=== PATIENT | female | born 1935 | race Caucasian/White ===

== ENCOUNTER → 2017-12-27 11:21 | Outpatient (CLI) | payer MEDICARE, SELFPAY ==
[2017-12-31 11:20] LABS: PTHIN 259.2 pg/mL (18.4-80.1)
[2017-12-31 11:24] LABS: ALB/GLOB Ratio 1.3 RATIO (0.9-2.4); AST(SGOT) 19 U/L (15-37); Alanine Aminotransfer ALT/SGPT 24 U/L (13-56); Albumin, Serum 3.4 g/dL (3.2-5.0); Alkaline Phosphatase 60 U/L (45-117); Anion Gap 9 (5-15); BUN 16 mg/dL (7-18); BUN/Creat Ratio 15.2 RATIO (10-20); Calcium,Total 10.5 mg/dL (8.5-10.1); Chloride 107 mmol/L (98-107); Creatinine, Serum 1.05 mg/dL (0.55-1.02); EST Glomerular Filtration Rate 53 mL/min (>60); Est Glom Filt Rate - Afr Amer 64 mL/min (>60); Globulin 2.7 g/dL (2.2-4.2); Glucose 86 mg/dL (74-106); Potassium 4.7 mmol/L (3.5-5.1); Protein, Total 6.1 g/dL (6.4-8.2); Sodium Level 144 mmol/L (136-145); Thyroid Stim Hormone (TSH) 1.03 uIU/mL (0.358-3.74)
== END ==
PROVIDERS: Family Provider Family Medicine; PCP Family Medicine; Visit Provider Internal Medicine Endocrinology, Diabetes & Metabolism
DX: E04.9 Nontoxic goiter, unspecified (principal); E21.0 Primary hyperparathyroidism; E55.9 Vitamin D deficiency, unspecified
CPT/HCPCS: 36415; 80053; 82306; 83970; 84443

== ENCOUNTER 2017-12-31 20:35 | Emergency (ER) | payer MEDICARE, SELFPAY ==
[2017-12-31 20:36] VITALS: BP 155/103; PULSE 63; RESP 17; TEMP 36.8; O2SAT 97; BMI 25.0
--- NOTE | 2017-12-31 21:13 | EKG12_ITS ---
Test Reason : Blood Pressure : / mmHG Vent. Rate : 063 BPM Atrial Rate : 063 BPM P-R Int : 170 ms QRS Dur : 094 ms QT Int : 396 ms P-R-T Axes : 065 036 047 degrees QTc Int : 405 ms Normal sinus rhythm with sinus arrhythmia Normal ECG Confirmed by LACY SMITH, PANKAJ ([id number]), editor school photograph PALAK BANUELOS ([id number]) on 01/03/2018 2:48:16 PM Referred By: Gurinder Aguilar Confirmed By:PANKAJ HOUSE MD
--- NOTE | 2017-12-31 21:22 | RAD_ITS ---
STUDY: X-RAY CHEST REASON FOR EXAM: Female, 82 years old. CHEST PAIN TECHNIQUE: Frontal and lateral views of the chest. COMPARISON: None. FINDINGS: Chronic appearing increased interstitial lung markings. The lung tee are hyperexpanded. There is no demonstrated pleural abnormality. Normal heart size. Normal mediastinum and jena. Normal visualized pulmonary arteries. There is atherosclerotic calcification of the aortic arch with tortuosity. There are diffuse degenerative changes of the visualized thoracic spine. There is degenerative osteoarthritis of the bilateral shoulders. There is no demonstrated abnormality of the visualized soft tissue structures of the upper abdomen. RAD/Chest PA and Lateral IMPRESSION: There are no acute findings. Electronically Signed: Judd Mauricio MD at 21:47 EDT , Service support ,
--- NOTE | 2017-12-31 21:46 | ED.DCSUM_ITS ---
- ER Visit Summary Date of Service: 12/31/17 Chief Complaint: Stomach and chest pain History of Present Illness: The patient is a 82 F with a history of vascular dementia who is a very poor historian. is not able to provide much input. Patient was brought in by her . She reported was complaining of some epigastric or lower chest pain earlier this evening that is now resolved. The patient told her she does want to be checked out. states she was pointing to the lower portion of her breast bone which is rather prominent. He believes that this was bothering her earlier. Past history significant for TIA, diabetes, hypertension, high cholesterol. Physical Examination: Vital signs are unremarkable. Patient sitting at bedside in no acute distress. Head neck examination is unremarkable with no sign of trauma. Heart is regular rate and rhythm. Lung sounds are clear. I cannot reproduce any chest wall tenderness. Abdomen is soft and nontender. She allows deep palpation throughout the upper abdomen. Test Results: EKG is sinus at 63 with no sign of acute ischemia. Two-view chest x-ray reveals no acute findings. Emergency Department Course and Treatment: At this time the patient's symptoms are completely resolved and described as being very vague. I do not think she needs significant further workup at this time. Patient and her are both comfortable with this. Treatment Plan: [] Disposition: Discharge Impression: Epigastric abdominal pain, resolved This note was generated with [employer] dictation software. It may contain incorrect words, spelling, and punctuation that were not noted in review of the chart prior to signing ED Disposition - Plan for ED Patient: Disposition: Home or Assisted Living Chief Complaint: Other, Pain/Inj Instructions: ED Epigastric Pain [facility] Referrals: Rodney Vance MD [Primary Care Provider] - As Needed
[2017-12-31 21:52] VITALS: BP 164/85; RESP 14
== END 2017-12-31 21:56 | disposition home or self-care (01) ==
PROVIDERS: Emergency Provider Emergency Medicine; Family Provider Family Medicine; PCP Family Medicine
DX: R10.13 Epigastric pain (principal); E11.9 Type 2 diabetes mellitus without complications; I10 Essential (primary) hypertension; E78.00 Pure hypercholesterolemia, unspecified; Z79.84 Long term (current) use of oral hypoglycemic drugs; Z79.02 Long term (current) use of antithrombotics/antiplatelets; Z79.899 Other long term (current) drug therapy; Z86.73 Personal history of transient ischemic attack (TIA), and cerebral infarction without residual deficits
CPT/HCPCS: 71046; 93005; 99282

== ENCOUNTER 2018-03-09 21:49 | Observation (INO) | payer MEDICARE, MEDICAID, SELFPAY ==
[2018-03-09 21:50] VITALS: BP 175/91; PULSE 72; RESP 17; TEMP 36.7; O2SAT 95; BMI 25.9
--- NOTE | 2018-03-09 22:18 | ED.RN ---
HOME MEDICATIONS WERE DOCUMENTED WITH THE ASSISTANCE OF THE OF PT. PT'S KNEW SOME MEDICATIONS.
--- NOTE | 2018-03-09 22:25 | EKG12_ITS ---
Test Reason : CONFUSION Blood Pressure : / mmHG Vent. Rate : 080 BPM Atrial Rate : 080 BPM P-R Int : 198 ms QRS Dur : 090 ms QT Int : 362 ms P-R-T Axes : 060 -15 046 degrees QTc Int : 417 ms Normal sinus rhythm Normal ECG Confirmed by ONEYDA SMITH, DEVI ([id number]), field map editor PALAK BANUELOS ([id number]) on 03/20/2018 6:47:20 PM Referred By: KIMBERLY Confirmed By:DEVI CALL MD
--- NOTE | 2018-03-09 22:26 | CT_ITS ---
STUDY: CT BRAIN WITHOUT CONTRAST REASON FOR EXAM: Female, 82 years old. Confusion RADIATION DOSAGE (If Supplied By Facility): CTDIvol = ( 44.99 ) mGy, DLP = ( 779.24 ) mGycm TECHNIQUE: Transaxial CT imaging of the brain was performed without administration of intravenous contrast material. Individualized dose optimization techniques were used for this CT. COMPARISON: None. FINDINGS: There is ventriculomegaly which is disproportionate in prominence to the degree of cortical sulci prominence seen. This raises the possibility of normal pressure hydrocephalus especially with the given history of confusion. Nonspecific microangiopathic white matter changes also evident. There is no acute hemorrhage or acute infarction and no intra or extra-axial tumor mass. The calvarium is intact and there are no scalp swellings CT/Brain/Head without Contrast IMPRESSION: No acute findings in the brain. Possible normal pressure hydrocephalus. Electronically Signed: Vincent Shultz, at 0:53 EDT Tel , Service support ,
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
--- NOTE | 2018-03-09 22:45 | RAD_ITS ---
STUDY: X-RAY CHEST REASON FOR EXAM: Female, 82 years old. Increased confusion TECHNIQUE: 1 view COMPARISON: None. FINDINGS: The lungs are clear and expanded. There is no demonstrated pleural abnormality. Normal size heart. Normal mediastinum and jena. Normal visualized pulmonary arteries. Normal visualized aortic arch and descending thoracic aorta. There are degenerative changes of the thoracic spine. Normal visualized ribs, clavicles, and shoulders. There is no demonstrated abnormality of the visualized soft tissue structures of the upper abdomen. RAD/Chest 1 View (Portable) IMPRESSION: No acute findings in the lungs Electronically Signed: Vincent Shultz, at 0:11 EDT Tel , Service support ,
[2018-03-09 22:52] LABS: Mucous, Urine 0 SEEN /hpf (<or=2+); White Blood Cells 0 SEEN /hpf (0-5)
[2018-03-09 22:55] LABS: Color, Urine Yellow (Yellow); Glucose, Dipstick Normal (Normal); Ketone-Dipstick Negative (Negative); Leukocyte Esterase-Dipstick Negative /ul (Negative); Nitrite-Dipstick Negative (Negative); Occult Blood-Urine 25 /ul (Negative); Protein-Dipstick 15 mg/dl (Negative); Urine Bilirubin Dipstick Negative (Negative); Urine Clarity Sl. Cloudy (Clear); Urine Urobilinogen Normal (Normal)
[2018-03-09 22:59] LABS: Absolute Lymphocyte Count 1.72 X10^3/ul (0.83-4.51); Absolute Neutrophil Count 3.9 X10^3/uL (2.0-7.7); Basophil# 0.19 X10^3/uL; Eosinophil# 0.05 X10^3/uL; Eosinophils% 0.8 % (0-5); Hematocrit 36.8 % (37-47); Hemoglobin 11.6 g/dl (12.0-15.0); Lymphocyte # 1.72 X10^3/ul (4.0); Lymphocyte % 26.8 % (19-41); Mean Corp Hgb Conc 31.5 g/gl (32-36); Mean Corpuscular Hgb 30.2 pg (27.0-32.0); Mean Corpuscular Volume 95.8 fL (81-99); Mean Platelet Vol. 10.2 fl (6.2-12.0); Monocyte# 0.59 X10^3/uL; Monocyte% 9.2 % (0-10); Neutrophil # 3.87 X10^3/uL (2.7-7.7); Neutrophil % 60.2 % (47-70); Platelet Count 245 K/mm3 (150-450); RBC Distribution Width CV 13.6 % (11.6-14.6); RBC Distribution Width SD 47.5 fl (35.1-43.9); Red Blood Count 3.84 M/mm3 (4.2-5.4); White Blood Count 6.4 K/mm3 (4.4-11.0)
[2018-03-09 23:00] LABS: POSITIVE COUNT NO; POSITIVE DIFFERENTIAL NO; POSITIVE MORPHOLOGY NO
[2018-03-09 23:03] LABS: Bacteria 1+ /hpf (None Seen); Red Blood Cells-Urine 0-5 SEEN /hpf (0-5); Squamous Epithelial Cells - UA 0-5 SEEN /hpf (5-10)
[2018-03-09 23:14] LABS: AST(SGOT) 21 U/L (15-37); Alanine Aminotransfer ALT/SGPT 23 U/L (13-56); Albumin, Serum 3.8 g/dL (3.2-5.0); Alkaline Phosphatase 100 U/L (45-117); Anion Gap 8 (5-15); BUN 20 mg/dL (7-18); BUN/Creat Ratio 15.7 RATIO (10-20); Bilirubin, Direct 0.09 mg/dL (0.00-0.30); Calcium,Total 10.7 mg/dL (8.5-10.1); Chloride 107 mmol/L (98-107); Creatinine, Serum 1.27 mg/dL (0.55-1.02); EST Glomerular Filtration Rate 43 mL/min (>60); Est Glom Filt Rate - Afr Amer 52 mL/min (>60); Estimated Creatinine Clearance 33.86 ml/min; Globulin 3.2 g/dL (2.2-4.2); Glucose 103 mg/dL (74-106); Lipase 292 U/L (73-393); Potassium 3.8 mmol/L (3.5-5.1); Sodium Level 145 mmol/L (136-145)
[2018-03-09 23:29] LABS: BNP,B-Type NATRIURETIC PEPTIDE 35.2 pg/mL (0-100)
[2018-03-10] VITALS (8 sets, daily range): BP systolic 99–163; BP diastolic 64–81; PULSE 59–73; RESP 16–22; TEMP 36.5–36.9; O2SAT 97–99; BMI 25.1
--- NOTE | 2018-03-10 00:34 | DT_ITS ---
This patient was seen during an EMR downtime March 11, 2018 - March 18, 2018. This patient may have a combination of paper and electronic documentation or all paper documentation. All documentation is viewable within the e-chart portion of [employer] for each patient visit.
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
[2018-03-10] MEDS: 0.9% Normal Saline 1,000 ML 100 ML IV (03:31)
[2018-03-10] MEDS: Ceftriaxone 1 GM/50 ML BAG IV (03:31)
[2018-03-10 04:37] LABS: Absolute Lymphocyte Count 2.02 X10^3/ul (0.83-4.51); Basophil# 0.14 X10^3/uL; Basophil% 2.4 % (0-1); Eosinophil# 0.08 X10^3/uL; Eosinophils% 1.4 % (0-5); Hematocrit 35.3 % (37-47); Lymphocyte # 2.02 X10^3/ul (4.0); Lymphocyte % 34.7 % (19-41); Mean Corp Hgb Conc 31.2 g/gl (32-36); Mean Corpuscular Hgb 29.7 pg (27.0-32.0); Mean Corpuscular Volume 95.4 fL (81-99); Mean Platelet Vol. 10.3 fl (6.2-12.0); Monocyte# 0.59 X10^3/uL; Monocyte% 10.1 % (0-10); Neutrophil # 2.99 X10^3/uL (2.7-7.7); Neutrophil % 51.4 % (47-70); Platelet Count 234 K/mm3 (150-450); RBC Distribution Width CV 13.5 % (11.6-14.6); RBC Distribution Width SD 47.2 fl (35.1-43.9); White Blood Count 5.8 K/mm3 (4.4-11.0)
[2018-03-10 04:59] LABS: POSITIVE COUNT NO; POSITIVE DIFFERENTIAL NO; POSITIVE MORPHOLOGY NO
[2018-03-10 05:00] LABS: Anion Gap 6 (5-15); BUN 18 mg/dL (7-18); BUN/Creat Ratio 15.5 RATIO (10-20); Calcium,Total 10.2 mg/dL (8.5-10.1); Chloride 110 mmol/L (98-107); Creatinine, Serum 1.16 mg/dL (0.55-1.02); EST Glomerular Filtration Rate 47 mL/min (>60); Est Glom Filt Rate - Afr Amer 57 mL/min (>60); Estimated Creatinine Clearance 35.73 ml/min; Glucose 88 mg/dL (74-106); Potassium 3.6 mmol/L (3.5-5.1); Sodium Level 146 mmol/L (136-145)
[2018-03-10 05:08] LABS: Thyroid Stim Hormone (TSH) 2.21 uIU/mL (0.358-3.74)
[2018-03-10] MEDS: Heparin Injection (Vial) 5,000 UNIT/ML VIAL 5000 UNIT SC ×3 (06:35→22:11)
[2018-03-10] MEDS: metFORMIN HCl 1,000 MG Tablet 1000 MG PO ×2 (08:24→16:52)
[2018-03-10] MEDS: Multivitamins,Therapeutic Tablet 1 TABLET PO (08:24)
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
[2018-03-10] MEDS: Clopidogrel Bisulfate 75 MG Tablet PO (10:34)
[2018-03-10] MEDS: Pyridoxine HCl 100 MG Tablet PO (10:34)
[2018-03-10] MEDS: Famotidine 20 MG Tablet PO ×2 (10:34→22:10)
[2018-03-10] MEDS: dilTIAZem CD 240 MG Capsule PO (10:35)
[2018-03-10] MEDS: Lisinopril 40 MG Tablet PO (10:35)
[2018-03-10] MEDS: HYDROCHLOROTHIAZIDE 12.5 MG CAPSULE PO (10:35)
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
[2018-03-10] MEDS: Atorvastatin Calcium 20 MG Tablet PO (22:11)
[2018-03-11 02:56] VITALS: BP 154/83; PULSE 57; RESP 16; TEMP 36.1; O2SAT 99
--- NOTE | 2018-03-12 12:38 | MRI_ITS ---
STUDY: MRI BRAIN WITHOUT CONTRAST REASON FOR EXAM: Female, 82 years old. Confusion. TECHNIQUE: Standardized multiplanar fat and water weighted pulse sequences were obtained. COMPARISON: None. FINDINGS: There is mild cerebral atrophy with widening of the extra-axial spaces and ventricular dilatation. There are multiple confluent white matter hyperintensities, distributed throughout the deep white matter tracts of the cerebral hemispheres, consistent with severe chronic white matter ischemic changes. There is confluent periventricular hyperintensity cloaking the lateral ventricles, consistent with periventricular leukoaraiosis. There is no evidence for recent intracranial ischemia or other cause of cytotoxic edema on diffusion weighted imaging (DWI). There are scattered foci of susceptibility artifact in the high left paramedian frontal lobe, right parietal lobe and left temporal lobe that may be the result of petechial hemorrhage. There are prominent perivascular spaces (PVS) involving the basal ganglia. There is a small focus of abnormal signal in the left thalamus. This may be the result of previous ischemia. The right thalamus have a normal appearance. There is no extra-axial fluid accumulation. Normal flow voids within the major intracranial circulation suggesting patency by spin echo criteria. Normal sella turcica, pituitary gland, infundibular stalk, optic chiasm and hypothalamus. Normal tectal plate and pineal gland. Normal midbrain, cruz and medulla. Normal cerebellum. There are large basal cisterns. Normal bilateral temporal bones. Normal bilateral internal auditory canals. There are bilateral ocular lens implants with otherwise normal intraorbital contents. Normal visualized paranasal sinuses. Normal calvarium and skull base. Normal visualized soft tissue structures. There are multilevel degenerative changes of the cervical spine. MRI/Brain without Contrast IMPRESSION: 1. Involutional changes of the brain, as described above. 2. No MR evidence for acute infarct. Electronically Signed: Faiza Damian MD at 11:06 EDT , Service support ,
[2018-03-15 17:52] LABS: Vitamin B12 269 pg/mL (211-911)
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
== END 2018-03-13 18:27 ==
LOC: ED 03-10 00:51 → MS3 03-10 00:53
PROVIDERS: Admitting Provider Internal Medicine; Emergency Provider Emergency Medicine; Family Provider Family Medicine; PCP Family Medicine; Visit Provider Internal Medicine
DX: G30.9 Alzheimer's disease, unspecified (principal); F02.81 Dementia in other diseases classified elsewhere, unspecified severity, with behavioral disturbance; Z91.83 Wandering in diseases classified elsewhere; I67.9 Cerebrovascular disease, unspecified; I12.9 Hypertensive chronic kidney disease with stage 1 through stage 4 chronic kidney disease, or unspecified chronic kidney disease; E11.22 Type 2 diabetes mellitus with diabetic chronic kidney disease; N18.3 Chronic kidney disease, stage 3 (moderate); E78.00 Pure hypercholesterolemia, unspecified; Z79.02 Long term (current) use of antithrombotics/antiplatelets; Z79.84 Long term (current) use of oral hypoglycemic drugs; Z79.899 Other long term (current) drug therapy
CPT/HCPCS: 36415; 70450; 70551; 71045; 80048; 80076; 81001; 82140; 82607; 82746; 83690; 83880; 84443; 84484; 85025; 93005; 96361; 96365; 96372; 97110; 97116; 97162; 97165; 97530; 99218; 99285; J7030; A4216; G0378

== ENCOUNTER 2019-04-03 06:22 | Inpatient (IN) | payer MEDICARE, MEDICAID, SELFPAY ==
[2019-04-03] VITALS (31 sets, daily range): BP systolic 85–140; BP diastolic 35–72; PULSE 71–103; RESP 12–21; TEMP 36.6–39.2; O2SAT 92–99; BMI 31.1
--- NOTE | 2019-04-03 06:41 | EKG12_ITS ---
Test Reason : SEPSIS Blood Pressure : / mmHG Vent. Rate : 088 BPM Atrial Rate : 088 BPM P-R Int : 158 ms QRS Dur : 088 ms QT Int : 346 ms P-R-T Axes : 060 -16 054 degrees QTc Int : 418 ms Normal sinus rhythm Poor R-wave Progression Confirmed by ONEYDA SMITH, DEVI ([id number]), assistant editor RYLEE PARRA ([id number]) on 04/07/2019 2:09:35 PM Referred By: RM/ALEX Confirmed By:DEVI CALL MD
--- NOTE | 2019-04-03 06:41 | ED.DCSUM_ITS ---
- ER Visit Summary Date of Service: 04/03/19 Chief Complaint: [] History of Present Illness: The patient is a 83 F [] Physical Examination: [] Test Results: Care of the patient was turned over to me pending lab results. EKG showed normal sinus rhythm with a rate of 88. There are no acute ST or T wave changes. Portable chest x-ray shows a left lower lobe infiltrate. CBC shows a leukocytosis of 12.5. Basic metabolic profile showed an elevated creatinine of 1.43 and BUN of 40 which is slightly increased from previous results. Troponin was elevated at 0.151. Lactate was also slightly elevated at 2.5. Urinalysis shows leukocyte esterase of 500 with greater than 100 white blood cells and 10-25 epithelial cells. Emergency Department Course and Treatment: Patient was given IV fluids. Patient was started on Zosyn by Dr. Broussard. Case was discussed with Dr. Forbes, hospitalist. Will admit the patient to ICU. Treatment Plan: Admit to ICU Disposition: 1. Severe sepsis 2. Healthcare associated pneumonia 3. Urinary tract infection 4. Elevated troponin Impression: [] This note was generated with [employer] dictation software. It may contain incorrect words, spelling, and punctuation that were not noted in review of the chart prior to signing <Jase Alvarez - Last Filed: 04/03/19 07:58> - ER Visit Summary Date of Service: 04/03/19 Chief Complaint: Fever, altered mental status History of Present Illness: The patient is a 83 F who presents from a senior living. She was found unresponsive. She had a temperature of 103.5. Her oxygen saturation was 80% on room air. Further history unable to be obtained due to the patient's altered mental status. Records were reviewed. She has a history of dementia, TIA, chronic kidney disease, diabetes, hypertension, hyperlipidemia. She is DNR CCA. Physical Examination: Blood pressure 100/41, axillary temperature 99.5, heart rate 98, respiratory rate 21, pulse ox 94% on 2 L Patient was lethargic with initial GCS of 8 she localizes to pain she does not appear to have focal or lateralizing neurological deficits She is hot to the touch Moist mucous membranes Heart regular tachycardia Tachypneic but lungs are clear I do not appreciate rales rhonchi or wheezes The abdomen is soft, nontender, nondistended Extremities without edema Strong symmetric radial pulses Test Results: Pending. Emergency Department Course and Treatment: Patient was seen promptly on arrival. She was treated with IV fluids and empiric antibiotics were ordered. She was given IV Zosyn. She received Tylenol prior to transfer here to the emergency department. EKG, chest x-ray, laboratory studies have been ordered. Patient signed out to the oncoming physician to follow-up on results and patient will require hospitalization. Treatment Plan: Signed out to oncoming physician for follow-up on results and admission. This note was generated with [employer] dictation software. It may contain incorrect words, spelling, and punctuation that were not noted in review of the chart prior to signing <Aldo Broussard - Last Filed: 04/15/19 06:31> ED Disposition <Jase Alvarez - Last Filed: 04/03/19 07:58> <Aldo Broussard - Last Filed: 04/15/19 06:31> - Plan for ED Patient: Disposition: Acute Care Hospital [facility] Diagnosis: Severe sepsis, Healthcare-associated pneumonia, UTI (urinary tract infection), Elevated troponin I level
--- NOTE | 2019-04-03 06:41 | RAD_ITS ---
HISTORY: Fever- UNRESPONSIVE/SEPSIS. EXAMINATION/TECHNIQUE: XR Chest 1 View: Portable COMPARISON: 03/09/2018 FINDINGS: EKG leads in place. Limited inspiration with mild elevation of the right hemidiaphragm. Left lower lobe retrocardiac infiltrate suggested compatible with pneumonia. Blunting of left costophrenic angle. Normal heart size. No overt vascular congestion. Atherosclerotic thoracic aorta. No pneumothorax. RAD/Chest 1 View (Portable) IMPRESSION: Left lower lobe pneumonia suspected. at 0716 Reported and signed by: Elías Guerra MD Electronically Signed: Elías Guerra, at 7:15 EDT Tel , Service support ,
[2019-04-03] MEDS: 0.9% Normal Saline 1,000 ML 999 ML IV ×2 (06:48)
[2019-04-03 06:51] LABS: Bedside Glucose 183 mg/dL (70-110)
[2019-04-03 06:56] LABS: Bacteria 0 SEEN /hpf (None Seen); Mucous, Urine 0 SEEN /hpf (<or=2+); Red Blood Cells-Urine 0 SEEN /hpf (0-5)
[2019-04-03 07:04] LABS: Absolute Lymphocyte Count 0.47 X10^3/ul (0.83-4.51); Basophil# 0.02 X10^3/uL; Basophil% 0.2 % (0-1); Hemoglobin 9.4 g/dl (12.0-15.0); Lymphocyte # 0.47 X10^3/ul (4.0); Lymphocyte % 3.8 % (19-41); Mean Corp Hgb Conc 32.4 g/gl (32-36); Mean Corpuscular Hgb 30.7 pg (27.0-32.0); Mean Corpuscular Volume 94.8 fL (81-99); Mean Platelet Vol. 11.5 fl (6.2-12.0); Monocyte# 1.01 X10^3/uL; Monocyte% 8.1 % (0-10); Neutrophil # 10.97 X10^3/uL (2.7-7.7); Neutrophil % 87.7 % (47-70); Platelet Count 156 K/mm3 (150-450); RBC Distribution Width CV 15.4 % (11.6-14.6); RBC Distribution Width SD 52.8 fl (35.1-43.9); Red Blood Count 3.06 M/mm3 (4.2-5.4); White Blood Count 12.5 K/mm3 (4.4-11.0)
[2019-04-03 07:10] LABS: Differential Indicated SCAN CRITERIA MET; POSITIVE COUNT NO; POSITIVE DIFFERENTIAL YES; POSITIVE MORPHOLOGY YES
[2019-04-03 07:11] LABS: International Normalized Ratio 1.1; Prothrombin Time (Protime)PT. 14.3 SECONDS (11.7-14.9)
[2019-04-03 07:12] LABS: Partial Thromboplast Time 29.2 Seconds (24.1-36.2)
[2019-04-03 07:16] LABS: ALB/GLOB Ratio 0.8 RATIO (0.9-2.4); AST(SGOT) 12 U/L (15-37); Alanine Aminotransfer ALT/SGPT 19 U/L (13-56); Albumin, Serum 2.7 g/dL (3.2-5.0); Alkaline Phosphatase 57 U/L (45-117); Anion Gap 3 (5-15); BUN 40 mg/dL (7-18); Calcium,Total 10.4 mg/dL (8.5-10.1); Chloride 104 mmol/L (98-107); Creatinine, Serum 1.43 mg/dL (0.55-1.02); EST Glomerular Filtration Rate 37 mL/min (>60); Est Glom Filt Rate - Afr Amer 45 mL/min (>60); Estimated Creatinine Clearance 25.29 ml/min; Globulin 3.2 g/dL (2.2-4.2); Glucose 162 mg/dL (74-106); Potassium 4.4 mmol/L (3.5-5.1); Protein, Total 5.9 g/dL (6.4-8.2); Sodium Level 138 mmol/L (136-145)
[2019-04-03 07:22] LABS: Lactic Acid 2.5 mmol/L (0.4-2.0)
[2019-04-03 07:40] LABS: Color, Urine Yellow (Yellow); Glucose, Dipstick Normal (Normal); Ketone-Dipstick Negative (Negative); Leukocyte Esterase-Dipstick 500 /ul (Negative); Nitrite-Dipstick Negative (Negative); Occult Blood-Urine 150 /ul (Negative); Protein-Dipstick 30 mg/dl (Negative); Urine Bilirubin Dipstick Negative (Negative); Urine Clarity Cloudy (Clear); Urine Urobilinogen Normal (Normal)
[2019-04-03 07:46] LABS: White Blood Cells >100 SEEN /hpf (0-5)
[2019-04-03 07:47] LABS: Squamous Epithelial Cells - UA 10-25 SEEN /hpf (5-10)
--- NOTE | 2019-04-03 07:54 | PCM.HP.STD ---
Problem List (1) HCAP (healthcare-associated pneumonia) Status: Acute (2) Alzheimer's dementia Status: Acute (3) UTI (urinary tract infection) Status: Acute (4) Vascular dementia Status: Chronic (5) Diabetes mellitus Status: Chronic (6) History of TIA (transient ischemic attack) Status: Chronic (7) Hypertension Status: Chronic (8) Pure hypercholesterolemia Status: Chronic (9) Severe sepsis Status: Acute History of Present Illness Date of Admission: 04/03/19 Chief Complaint: Fever, unresponsiveness The patient is a 83 year old F with multiple comorbidities as listed above, correction resident on wheelchair was brought to ER with high fever, 80% on room air and unresponsiveness. skilled nursing heart rate was 106/min, temperature 103.5, BP 138/80 about 5 AM in SNF. In ED, her blood pressure was 95/47, map 63, pulse ox 96% on 2 L of oxygen. She was started on 2 L of normal 7 bolus and 1 dose of Zosyn was given. When I saw the patient, patient opens eyes on verbal command but not verbal, at most nods her head. is at bedside said she was shivering last evening but did not know about cough, or shortness of breath. Patient was drooling from the mouth mainly from right angle. Chest x-ray shows retrocardiac infiltrate. UA is positive of infiltrate. Past Medical History Past Medical History (Chronic Problems): Chronic Problems Vascular dementia (Chronic) History of TIA (transient ischemic attack) (Chronic) Pure hypercholesterolemia (Chronic) Hypertension (Chronic) Diabetes mellitus (Chronic) Allergies No Known Allergies Allergy (Verified 04/03/19 06:38) Home Medications: Ambulatory Orders Medication Instructions Recorded Atorvastatin Calcium [Lipitor] 20 mg PO QHS 02/06/14 metFORMIN HCl [Glucophage] 1,000 mg PO BIDCM 02/06/14 Cholecalciferol (VIT D3) [Vitamin 4,000 unit PO DAILY 03/09/18 D] Divalproex Sodium [Depakote] 250 mg PO BIDCM 04/03/19 Donepezil HCl [Aricept] 10 mg PO QHS 04/03/19 Famotidine [Pepcid] 20 mg PO BID 04/03/19 Ferrous Sulfate 325 mg PO QHS 04/03/19 Furosemide [Lasix] 20 mg PO DAILY 06/27/19 Lorazepam [Ativan] 0.5 mg PO QHS PRN 04/03/19 Polyethylene Glycol 3350 [Miralax] 17 gm PO QODAY PRN 04/03/19 Risperidone [Risperdal] 0.5 mg PO DAILY 04/03/19 Risperidone [Risperdal] 1 mg PO QHS 04/03/19 Senna/Docusate Sodium [Senokot-S, 1 tab PO QHS 04/03/19 Ksenia-Colace] traZODone [Desyrel] 25 mg PO QHS 04/03/19 Surgical History: cholecystectomy, hysterectomy, tunnel surgery Smoking Status: Never smoker - *Family History Paternal History Items: Unknown - Patient is not verbal or mostly not responsive Review of Systems Constitutional: Reports: Chills, Fever Cardiovascular: Denies: Chest Pain Neurological: Reports: Balance problems, - - On wheelchair Unable to obtain accurate/complete ROS d/t: Unresponsive/minimally responsive VTE Information - Inpt Only VTE Present on Admission: No VTE Mechan Device Prophylaxis: SCD's VTE Pharm Prophylaxis ordered?: Yes Patient Problems: Active and Suspected Problems HCAP (healthcare-associated pneumonia) (Acute) Alzheimer's dementia (Acute) Severe sepsis (Acute) - Physical Exam General: Confused, Disoriented, Lethargic, - - Minimally responsive to voice but does not answer questions HEENT: Atraumatic, PERRLA, EOMI, Normocephalic Oral: Dry Mucosa, - - Drooling saliva from mouth Neck: Supple, No JVD, Negative Carotid Bruits Lungs: No rhonchi, No wheeze, - - Does not have good respiratory effort. Mild short of breath. Cardiovascular: Regular rate, Regular Rhythm, Normal S1, Normal S2, No murmurs Abdomen: Bowel Sounds Present, Soft, Non Tender, Non-Distended Extremities: No edema, Capillary Refill Less than 3 Seconds Skin: No rashes, No breakdown Musculoskeletal: No Tenderness to Palpation of Joints or Extremities, Arthritic Changes, Muscle Wasting Neurological: Cranial nerves II-XII grossly intact, - - Patient is minimally responsive. Detail neuro exam unobtainable Psych/Mental Status: Normal Affect, Appropriate Vital Signs Temp Pulse Resp BP Pulse Ox 99.3 F H 88 14 95/48 L 99 04/03/19 07:41 04/03/19 07:41 04/03/19 07:41 04/03/19 07:41 04/03/19 07:41 Oxygen Flow Rate (L/min) 2 Oxygen Delivery Method Nasal Cannula Weight: 181 lb 7.047 oz Body Mass Index (BMI) 31.1 Finger Stick Blood Glucose 183 Laboratory Tests Past 24 Hrs 04/03/19 04/03/19 04/03/19 06:50 06:50 06:50 WBC 12.5 H RBC 3.06 L Hgb 9.4 L Hct 29.0 L MCV 94.8 MCH 30.7 MCHC 32.4 RDW 15.4 H RDW Differential 52.8 H Plt Count 156 MPV 11.5 Immature Gran % (Auto) 0.200 Neut % (Auto) 87.7 H Lymph % (Auto) 3.8 L [place] % (Auto) 8.1 Eos % (Auto) 0.0 Baso % (Auto) 0.2 Absolute Neuts (auto) 11.0 H Absolute Lymphs (auto) 0.47 L Total Counted Not Reportable PT 14.3 INR 1.1 APTT 29.2 Sodium 138 Potassium 4.4 Chloride 104 Carbon Dioxide 31.0 Anion Gap 3 L BUN 40 H Creatinine 1.43 H Estim Creat Clear Calc 25.29 Est GFR (MDRD) Af Amer 45 L Est GFR (MDRD) Non-Af 37 L BUN/Creatinine Ratio 28.0 H Glucose 162 H Lactic Acid Calcium 10.4 H Total Bilirubin 0.30 AST 12 L ALT 19 Alkaline Phosphatase 57 Troponin I 0.151 H Total Protein 5.9 L Albumin 2.7 L Globulin 3.2 Albumin/Globulin Ratio 0.8 L Urine Color Urine Clarity Urine pH Ur Specific [place] Urine Protein Urine Glucose (UA) Urine Ketones Urine Occult Blood Urine Nitrite Urine Bilirubin Urine Urobilinogen Ur Leukocyte Esterase Urine RBC Urine WBC Ur Squamous Epith Cells Urine Bacteria Urine Mucus 04/03/19 04/03/19 06:50 06:50 WBC RBC Hgb Hct MCV MCH MCHC RDW RDW Differential Plt Count MPV Immature Gran % (Auto) Neut % (Auto) Lymph % (Auto) [place] % (Auto) Eos % (Auto) Baso % (Auto) Absolute Neuts (auto) Absolute Lymphs (auto) Total Counted PT INR APTT Sodium Potassium Chloride Carbon Dioxide Anion Gap BUN Creatinine Estim Creat Clear Calc Est GFR (MDRD) Af Amer Est GFR (MDRD) Non-Af BUN/Creatinine Ratio Glucose Lactic Acid 2.5 H Calcium Total Bilirubin AST ALT Alkaline Phosphatase Troponin I Total Protein Albumin Globulin Albumin/Globulin Ratio Urine Color Yellow Urine Clarity Cloudy Urine pH 7.0 Ur Specific [place] 1.010 Urine Protein 30 H Urine Glucose (UA) Normal Urine Ketones Negative Urine Occult Blood 150 H Urine Nitrite Negative Urine Bilirubin Negative Urine Urobilinogen Normal Ur Leukocyte Esterase 500 H Urine RBC 0 SEEN Urine WBC >100 SEEN Ur Squamous Epith Cells 10-25 SEEN Urine Bacteria 0 SEEN Urine Mucus 0 SEEN POC Glucose 04/03/19 06:40 POC Glucose 183 H Assessment/Plan All Active Problems UTI (urinary tract infection) (Acute) HCAP (healthcare-associated pneumonia) (Acute) Alzheimer's dementia (Acute) Severe sepsis (Acute) The patient is a 83 year old F with multiple comorbidities as listed above, correction resident on wheelchair was brought to ER with high fever, 80% on room air and unresponsiveness. skilled nursing heart rate was 106/min, temperature 103.5, BP 138/80 about 5 AM in SNF. In ED, her blood pressure was 95/47, map 63, pulse ox 96% on 2 L of oxygen. She was started on 2 L of normal 7 bolus and 1 dose of Zosyn was given. When I saw the patient, patient opens eyes on verbal command but not verbal, at most nods her head. is at bedside said she was shivering last evening but did not know about cough, or shortness of breath. Patient was drooling from the mouth mainly from right angle. Chest x-ray shows retrocardiac infiltrate. UA is positive of pyuria, LE 500, WBC more than 107 but nitrite negative 1. Severe sepsis (tachycardia, hypotension, fever, leukocytosis and lactic acidosis, possible septic shock secondary to left lower lobe pneumonia with suspicion of aspiration pneumonia and UTI: Patient is being admitted in ICU. Basic labs shows leukocytosis with left shift, lactic acid 2.5. Started on IV Zosyn in ER and will continue it. Bronchodilator as needed. Chest physiotherapy and oxygen therapy as needed. Bond Trader consult. BiPAP as needed. Patient is DNR CC arrest therefore no intubation. Speech/swallow evaluation when patient is more stable. Keep n.p.o except medications. Sepsis work-up ordered including urinary antigens, MRSA nasal screen, blood cultures x2 and urine culture. 2. Alzheimer's dementia or possible vascular dementia: Patient has a history of TIA, dyslipidemia. At home, patient is on Aricept, Ativan 0.5 mg at bedtime, Depakote 50 mg twice daily and trazodone. Hold neuropsychiatric medications until patient is awake. 3. Acute kidney injury on CKD stage III: Patient's baseline creatinine runs around 1.10-1.2. Currently creatinine 1.43, BUN 40 probably from prerenal/dehydration or ATN from sepsis 4. Diabetes mellitus type 2: Glucose 162. Accu-Chek before meals and at bedtime and cover with Humalog sliding scale. 5. Other comorbidities include chronic hyportension, dyslipidemia: As per the patient's her blood pressure has always been low in 80s and 90s and sometimes drops to 60s. She did not get symptoms/signs of hypotension therefore may be her normal baseline SBP is 90s. DVT prophylaxis, moderate to high risk: Lovenox and bilateral SCDs. Goal of life/advanced directive. Discussed with the patient's as currently patient is minimally responsive. As per the patient's , she does not want artificial life support including intubation, ventilator and/chest compression and defibrillator/cardioversion but okay with IV fluid, vasopressors and central line. skilled nursing paper states a DNR CC arrest. Patient is DNR CC arrest. Patient is DNR CC Arrest. Total time spent in [id number] encounter in discussion of advanced directive 18 minutes. Laboratory Results 04/03/19 06:40: POC Glucose 183 H 04/03/19 06:50: WBC 12.5 H, RBC 3.06 L, Hgb 9.4 L, Hct 29.0 L, MCV 94.8, MCH 30.7, MCHC 32.4, RDW 15.4 H, RDW Differential 52.8 H, Plt Count 156, MPV 11.5, Immature Gran % (Auto) 0.200, Neut % (Auto) 87.7 H, Lymph % (Auto) 3.8 L, [place] % (Auto) 8.1, Eos % (Auto) 0.0, Baso % (Auto) 0.2, Absolute Neuts (auto) 11.0 H, Absolute Lymphs (auto) 0.47 L, Total Counted Not Reportable 04/03/19 06:50: PT 14.3, INR 1.1, APTT 29.2 04/03/19 06:50: Sodium 138, Potassium 4.4, Chloride 104, Carbon Dioxide 31.0, Anion Gap 3 L, BUN 40 H, Creatinine 1.43 H, Estim Creat Clear Calc 25.29, Est GFR (MDRD) Af Amer 45 L, Est GFR (MDRD) Non-Af 37 L, BUN/Creatinine Ratio 28.0 H, Glucose 162 H, Calcium 10.4 H, Total Bilirubin 0.30, AST 12 L, ALT 19, Alkaline Phosphatase 57, Troponin I 0.151 H, Total Protein 5.9 L, Albumin 2.7 L, Globulin 3.2, Albumin/Globulin Ratio 0.8 L 04/03/19 06:50: Lactic Acid 2.5 H 04/03/19 06:50: Urine Color Yellow, Urine Clarity Cloudy, Urine pH 7.0, Ur Specific [place] 1.010, Urine Protein 30 H, Urine Glucose (UA) Normal, Urine Ketones Negative, Urine Occult Blood 150 H, Urine Nitrite Negative, Urine Bilirubin Negative, Urine Urobilinogen Normal, Ur Leukocyte Esterase 500 H, Urine RBC 0 SEEN, Urine WBC >100 SEEN, Ur Squamous Epith Cells 10-25 SEEN, Urine Bacteria 0 SEEN, Urine Mucus 0 SEEN Clinical Impression(s) from Imaging Studies Chest X-Ray 04/03/19 06:41 IMPRESSION: Left lower lobe pneumonia suspected. Code Visit Inpatient E&M: 75259 Init Hosp L3 Procedures: 45675 Advncd Care Plan 30 Min
--- NOTE | 2019-04-03 08:07 | ED.RN ---
pt's in to see pt and updated on testing and condition. attempted to wake pt but still does not open eyes or attempt to respond. waiting for hospitalist to see pt. reports that normally a&o but that wasnt herself last evening when i went over for supper stated, she was shaking so bad i had to feed her her supper
--- NOTE | 2019-04-03 08:50 | ED.RN ---
report called to curriculum supervisor with no questions voiced. dr. granados in and orderred 3rd fluid bolus. u.0 good and 50cc emptied from urometer
--- NOTE | 2019-04-03 08:57 | ED.RN ---
pt opened eyes to dr's voiced but unable to follow commands. looking around room. when asked how pt feeling pt stated sick
[2019-04-03] MEDS: 0.9% Normal Saline 1,000 ML 50 ML IV (10:08)
[2019-04-03 10:54] LABS: Reflex Lactate? Y
[2019-04-03 12:05] LABS: Bedside Glucose 138 mg/dL (70-110)
[2019-04-03 12:12] LABS: Lactic Acid 2.8 mmol/L (0.4-2.0)
[2019-04-03] MEDS: Ipratropium/Albuterol Sulfate 3 ML AMPUL.NEB INHALATION ×2 (12:44→19:05)
--- NOTE | 2019-04-03 12:44 | PCM.CON.CC ---
Problem List (1) Vascular dementia Status: Chronic (2) UTI (urinary tract infection) Status: Acute (3) Alzheimer's dementia Status: Acute (4) Severe sepsis Status: Acute (5) Elevated troponin I level Status: Acute (6) History of TIA (transient ischemic attack) Status: Chronic (7) Pure hypercholesterolemia Status: Chronic (8) Hypertension Status: Chronic (9) Diabetes mellitus Status: Chronic Reason for Consult Date of Consultation: 04/03/19 Reason for Consultation: Severe sepsis History of Present Illness: The patient is an 83 year old F, with past medical history listed below, who presented to [facility] on 04/03/2019 secondary to fever and altered mental status. Patient reportedly was found unresponsive with a temperature of 103.5 ?F. Patient was also noted to be saturating 80% on room air. Patient does have a history of dementia, chronic kidney disease, diabetes and hyperlipidemia. Patient was reportedly a DNR Comfort Care arrest without any patient. On arrival to the emergency room, patient's saturations was 94% on 2 L, blood pressure 100/41 and was lethargic with an initial GCS of 8. Patient was tachypnea, but lung sounds were reportedly clear. Patient was treated per the sepsis protocol with empiric antibiotics and IV fluids with some improvement and then transferred to the intensive care unit for further monitoring. Patient's was at the bedside during my evaluation. Per his report, patient was not acting right yesterday evening. Patient's reports that he goes to the residential for lunch and dinner every day to help feed his . Patient's reported that the nursing staff checked her out but could not find anything requiring further intervention. This morning, patient's was called and told that she had transferred to the emergency room. Patient does not typically talk much at baseline. Patient does have a significant tremor at baseline per the . Patient is unable to provide any review of systems at this time. Past Medical History Past Medical History (Chronic Problems): Chronic Problems Vascular dementia (Chronic) History of TIA (transient ischemic attack) (Chronic) Pure hypercholesterolemia (Chronic) Hypertension (Chronic) Diabetes mellitus (Chronic) Allergies No Known Allergies Allergy (Verified 04/03/19 06:38) Home Medications: Ambulatory Orders Medication Instructions Recorded Atorvastatin Calcium [Lipitor] 20 mg PO QHS 02/06/14 metFORMIN HCl [Glucophage] 1,000 mg PO BIDCM 02/06/14 Cholecalciferol (VIT D3) [Vitamin 4,000 unit PO DAILY 03/09/18 D] Divalproex Sodium [Depakote] 250 mg PO BIDCM 04/03/19 Donepezil HCl [Aricept] 10 mg PO QHS 04/03/19 Famotidine [Pepcid] 20 mg PO BID 04/03/19 Ferrous Sulfate 325 mg PO QHS 04/03/19 Furosemide [Lasix] 20 mg PO DAILY 04/03/19 Lorazepam [Ativan] 0.5 mg PO QHS PRN 04/03/19 Polyethylene Glycol 3350 [Miralax] 17 gm PO QODAY PRN 04/03/19 Risperidone [Risperdal] 0.5 mg PO DAILY 04/03/19 Risperidone [Risperdal] 1 mg PO QHS 04/03/19 Senna/Docusate Sodium [Senokot-S, 1 tab PO QHS 04/03/19 Ksenia-Colace] traZODone [Desyrel] 25 mg PO QHS 04/03/19 Surgical History: cholecystectomy, hysterectomy, tunnel surgery Smoking Status: Never smoker - *Family History Paternal History Items: Unknown - Patient is not verbal or mostly not responsive Review of Systems Unable to obtain accurate/complete ROS d/t: See HPI Patient Problems: Active and Suspected Problems HCAP (healthcare-associated pneumonia) (Acute) Alzheimer's dementia (Acute) Severe sepsis (Acute) Severe sepsis (Acute) Healthcare-associated pneumonia (Acute) UTI (urinary tract infection) (Acute) Elevated troponin I level (Acute) Objective: Patient does not have any echocardiograms or pulmonary function tests available for review in the computer system. Patient did have an MRI in March 2018 showing involutional changes without acute infarct. Chest x-ray was personally reviewed and reported as left lower lobe infiltrate. This is unclear without a lateral film. - Physical Exam General: Alert, Confused, Disoriented, Non-Cooperative, - - Masked faces. Not interactive, but protecting airway HEENT: Atraumatic, PERRLA, EOMI, Normocephalic, - - No scleral icterus or injection noted. Oral: Moist Mucosa, No Gingival or Mucosal Lesions/ Ulcerations Neck: Supple, No JVD, No Nodes, Trachea Midline Lungs: Clear to auscultation, Normal air movement, No rhonchi, No wheeze, No rales Cardiovascular: Normal S1, Normal S2, No murmurs, No rub noted, No Gallop, Tachycardic Abdomen: Bowel Sounds Present, Soft, Non Tender, Non-Distended, No Hepato-splenomegaly, Obese Extremities: No clubbing, No cyanosis, No edema Skin: No rashes, No breakdown Musculoskeletal: No Tenderness to Palpation of Joints or Extremities Lymphatic: No Cervical, Supraclavicular, or Inguinal Adenopathy Neurological: Cranial nerves II-XII grossly intact, Neuro grossly intact - Nonfocal exam. Significant tremor noted of the extremities. Readily follows with eyes Psych/Mental Status: Flat Affect Vital Signs Temp Pulse Resp BP Pulse Ox 37.6 C H 99 15 113/56 L 95 04/03/19 12:00 04/03/19 12:00 04/03/19 12:00 04/03/19 12:00 04/03/19 12:00 Oxygen Flow Rate (L/min) 2 Oxygen Delivery Method Room Air Weight: 82.6 kg Body Mass Index (BMI) 31.1 Finger Stick Blood Glucose 183 Intake and Output for Last 24 Hours 04/01/19 04/02/19 04/03/19 23:59 23:59 23:59 Intake Total 0 / 0 Output Total 90 / 90 Balance -90 / -90 Microbiology Past 72 Hours 04/03/19 10:30 Legionella Antigen - Final Urine Catheter - Hubbard Streptococcus pneumoniae Antigen (M - Final Laboratory Tests Past 24 Hrs 04/03/19 04/03/19 04/03/19 06:50 06:50 06:50 WBC 12.5 H RBC 3.06 L Hgb 9.4 L Hct 29.0 L MCV 94.8 MCH 30.7 MCHC 32.4 RDW 15.4 H RDW Differential 52.8 H Plt Count 156 MPV 11.5 Immature Gran % (Auto) 0.200 Neut % (Auto) 87.7 H Lymph % (Auto) 3.8 L [place] % (Auto) 8.1 Eos % (Auto) 0.0 Baso % (Auto) 0.2 Absolute Neuts (auto) 11.0 H Absolute Lymphs (auto) 0.47 L Total Counted Not Reportable PT 14.3 INR 1.1 APTT 29.2 Sodium 138 Potassium 4.4 Chloride 104 Carbon Dioxide 31.0 Anion Gap 3 L BUN 40 H Creatinine 1.43 H Estim Creat Clear Calc 25.29 Est GFR (MDRD) Af Amer 45 L Est GFR (MDRD) Non-Af 37 L BUN/Creatinine Ratio 28.0 H Glucose 162 H Lactic Acid Calcium 10.4 H Total Bilirubin 0.30 AST 12 L ALT 19 Alkaline Phosphatase 57 Troponin I 0.151 H Total Protein 5.9 L Albumin 2.7 L Globulin 3.2 Albumin/Globulin Ratio 0.8 L Urine Color Urine Clarity Urine pH Ur Specific Mcgregor Urine Protein Urine Glucose (UA) Urine Ketones Urine Occult Blood Urine Nitrite Urine Bilirubin Urine Urobilinogen Ur Leukocyte Esterase Urine RBC Urine WBC Ur Squamous Epith Cells Urine Bacteria Urine Mucus 04/03/19 04/03/19 04/03/19 06:50 06:50 10:00 WBC RBC Hgb Hct MCV MCH MCHC RDW RDW Differential Plt Count MPV Immature Gran % (Auto) Neut % (Auto) Lymph % (Auto) [place] % (Auto) Eos % (Auto) Baso % (Auto) Absolute Neuts (auto) Absolute Lymphs (auto) Total Counted PT INR APTT Sodium Potassium Chloride Carbon Dioxide Anion Gap BUN Creatinine Estim Creat Clear Calc Est GFR (MDRD) Af Amer Est GFR (MDRD) Non-Af BUN/Creatinine Ratio Glucose Lactic Acid 2.5 H Calcium Total Bilirubin AST ALT Alkaline Phosphatase Troponin I 0.345 H Total Protein Albumin Globulin Albumin/Globulin Ratio Urine Color Yellow Urine Clarity Cloudy Urine pH 7.0 Ur Specific [place]greg[place] 1.010 Urine Protein 30 H Urine Glucose (UA) Normal Urine Ketones Negative Urine Occult Blood 150 H Urine Nitrite Negative Urine Bilirubin Negative Urine Urobilinogen Normal Ur Leukocyte Esterase 500 H Urine RBC 0 SEEN Urine WBC >100 SEEN Ur Squamous Epith Cells 10-25 SEEN Urine Bacteria 0 SEEN Urine Mucus 0 SEEN 04/03/19 04/03/19 11:20 12:20 WBC RBC Hgb Hct MCV MCH MCHC RDW RDW Differential Plt Count MPV Immature Gran % (Auto) Neut % (Auto) Lymph % (Auto) [place] % (Auto) Eos % (Auto) Baso % (Auto) Absolute Neuts (auto) Absolute Lymphs (auto) Total Counted PT INR APTT Sodium Potassium Chloride Carbon Dioxide Anion Gap BUN Creatinine Estim Creat Clear Calc Est GFR (MDRD) Af Amer Est GFR (MDRD) Non-Af BUN/Creatinine Ratio Glucose Lactic Acid 2.8 H Calcium Total Bilirubin AST ALT Alkaline Phosphatase Troponin I Pending Total Protein Albumin Globulin Albumin/Globulin Ratio Urine Color Urine Clarity Urine pH Ur Specific [place] Urine Protein Urine Glucose (UA) Urine Ketones Urine Occult Blood Urine Nitrite Urine Bilirubin Urine Urobilinogen Ur Leukocyte Esterase Urine RBC Urine WBC Ur Squamous Epith Cells Urine Bacteria Urine Mucus POC Glucose 04/03/19 04/03/19 12:02 06:40 POC Glucose 138 H 183 H Clinical Impression(s) from Imaging Studies Chest X-Ray 04/03/19 06:41 IMPRESSION: Left lower lobe pneumonia suspected. at 0716 Reported and signed by: Elías Guerra MD Electronically Signed: Elías Guerra, at 7:15 EDT Tel , Service support , Assessment/Plan Active and Suspected Problems HCAP (healthcare-associated pneumonia) (Acute) Alzheimer's dementia (Acute) Severe sepsis (Acute) Severe sepsis (Acute) Healthcare-associated pneumonia (Acute) UTI (urinary tract infection) (Acute) Elevated troponin I level (Acute) RECOMMENDATIONS: 1. Continue with empiric antibiotics 2. Okay to have additional fluid boluses if necessary 3. Likely okay to discontinue PICC line 4. Verified CODE STATUS DNR Comfort Care arrest without intubation IMPRESSIONS: 1. Severe sepsis secondary to pneumonia versus UTI Patient does have a significant leukocytosis with a left shift, lactic acidosis and hypotension on presentation. Patient reportedly was not having any respiratory symptoms previously. Patient did have significant pyuria. Patient is on empiric antibiotics at this time. Patient does not take steroids at baseline, so stress dose steroids are likely not necessary. Add vancomycin if MRSA swab is positive. Patient is responding well to fluid resuscitation at this time. 2. Alzheimer's or vascular dementia with possible delirium Unclear patient is developing some delirium at this time. Patient does have dementia at baseline, but exact etiology of baseline dementia is unclear per the notes. Patient is on Depakote and trazodone at baseline. This can likely be reinitiated tomorrow 3. Acute on chronic kidney disease stage III Patient's creatinine is slightly elevated compared to baseline. Patient also has an elevated BUN and a pattern consistent with prerenal etiology. Aggressive blood pressure support and hydration will be necessary. Continue to monitor. No indication for renal replacement therapy at this time. 4. Diabetes mellitus type 2 Monitor blood sugars closely. Sliding scale insulin will likely be sufficient. Patient does not appear to be able to take any p.o. intake at this time 5. Advanced age/dyslipidemia/lower baseline blood pressures/poor history Complicates care, management, recovery and prognosis. Patient's does report her having systolics in the 80s to 90s at baseline. No previous echocardiogram is available for review. Patient does have a slight elevation in troponin, but this may be secondary to hypoxemia on presentation. Possibly add echocardiogram if troponins continue to elevate. Code Visit Inpatient E&M: 67969 Init Hosp L3
--- NOTE | 2019-04-03 12:59 | CPS ---
Verbal order given by Dr. Londono for tCO2 monitor.
[2019-04-03] MEDS: Enoxaparin 30 MG/0.3 ML Syringe SC (13:29)
--- NOTE | 2019-04-03 13:53 | ECHOD_ITS ---
Reason For Study: Elevated Troponin Procedure This was a 2D Doppler, Color Flow transthoracic echocardiogram. The exam was of adequate technical quality. Exam performed portable in ICU/CCU. Left Ventricle Normal LV size. Mild concentric left ventricular hypertrophy. Apical false tendon noted. Left ventricular systolic function is normal. The estimated ejection fraction is 60 %. No evidence for diastolic dysfunction. No regional wall motion abnormalities noted. Right Ventricle Normal RV size. Normal systolic function. Atria Normal left atrium. Normal right atrium. No doppler evidence for ASD. Mitral Valve There is no mitral annular calcification. Anterior leaflet diffuse mitral valve thickening. Moderate (2+) mitral valve insufficiency. Tricuspid Valve Mild diffuse thickening of the tricuspid valve. Poor coaptation of the tricuspid valve apparatus. Moderate (2+) tricuspid valve insufficiency. Right ventricular systolic pressure estimated to be 43 mmHg. Aortic Valve Trisinus/trileaflet aortic valve. Moderate focal aortic valve calcification. Pulmonic Valve The pulmonic valve is not well visualized. Great Vessels Normal sized aortic root. Pericardium/Pleural No pericardial effusion. MMode/2D Measurements & Calculations LVIDd: 4.9 cm IVSd: 1.4 cm Ao root diam: 2.9 cm LVIDs: 3.5 cm LVPWd: 1.3 cm RVDd: 4.0 cm FS: 28.4 % LAV(MOD-bp): 49.3 ml LVAd ap4: 26.0 cm2 SV(MOD-sp4): 39.4 ml LAV(MOD-bp) Indexed: 26.3 ml/m2 EDV(MOD-sp4): 76.6 ml LAV(MOD-sp2): 37.3 ml EDV(sp4-el): 79.7 ml LAV(MOD-sp4): 45.2 ml LVAs ap4: 16.7 cm2 ESV(MOD-sp4): 37.3 ml ESV(sp4-el): 36.8 ml EF(MOD-sp4): 51.4 % EF(sp4-el): 53.8 % SV(sp4-el): 42.8 ml LA A4 area: 18.5 cm2 LA dimension(2D): 3.4 cm RA A4 area: 16.7 cm2 Doppler Measurements & Calculations MV E max wilbur: 70.1 cm/sec Lat Peak E' Wilbur: 8.4 cm/sec Med Peak E' Wilbur: 7.4 cm/sec MV A max wilbur: 78.2 cm/sec E/E' lat: 8.4 E/E' med: 9.4 MV E/A: 0.90 Ao V2 max: 123.1 cm/sec LV V1 max: 83.0 cm/sec PA V2 max: 77.6 cm/sec Ao max P.1 mmHg LV V1 max P.8 mmHg Ao V2 mean: 91.2 cm/sec Ao mean P.7 mmHg Ao V2 VTI: 29.1 cm TR max wilbur: 264.4 cm/sec TR max P.0 mmHg Interpretation Summary Left ventricular systolic function is normal. The estimated ejection fraction is 60 %. Mild concentric left ventricular hypertrophy. Apical false tendon noted. Anterior leaflet diffuse mitral valve thickening. Moderate (2+) mitral valve insufficiency. Mild diffuse thickening of the tricuspid valve. Poor coaptation of the tricuspid valve apparatus. Moderate (2+) tricuspid valve insufficiency. Moderate focal aortic valve calcification. Right ventricular systolic pressure estimated to be 43 mmHg. No evidence for diastolic dysfunction. Ordering Physician: Mike Forbes Referring Physician: Rishabh Cr Performed By: Breana Gregory, MANUEL, RVT
--- NOTE | 2019-04-03 13:54 | CASEMGMT ---
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 JUSTEN faxed clinical updates to Suma at [facility]. CUATE Chung
[2019-04-03] MEDS: Acetaminophen 650 MG Suppository RECTAL (14:24)
[2019-04-03 16:51] LABS: Bedside Glucose 120 mg/dL (70-110)
--- NOTE | 2019-04-03 20:50 | NURSING ---
Pt is alert to voice, but does not follow commands, makes no attempt to speak. Will hold PO medications until status improves. Day nurse had discussed changing to IV meds with Dayshift hospitalist and was advised to hold all medications until pt improved. Communication order is documented.
--- NOTE | 2019-04-03 20:54 | NURSING ---
Report from offgoing RN, dayshift hospitalist ordered to hold all PO medications until pt condition improved with ability to follow commands. Pt is alert, but not following commands, does not have verbal communication with staff. Pt opens eyes to verbal stimulus but does not respond. Will hold PM PO medications due to pt lack of ability to follow commands for aspiration precaution.
[2019-04-03 22:06] LABS: Bedside Glucose 120 mg/dL (70-110)
[2019-04-04] VITALS (25 sets, daily range): BP systolic 90–155; BP diastolic 41–79; PULSE 48–134; RESP 8–22; TEMP 36.4–37.7; O2SAT 94–100
[2019-04-04] MEDS: 0.9% Normal Saline 1,000 ML 50 ML IV ×2 (00:40→19:41)
[2019-04-04 04:27] LABS: Absolute Lymphocyte Count 1.09 X10^3/ul (0.83-4.51); Absolute Neutrophil Count 6.5 X10^3/uL (2.0-7.7); Basophil# 0.04 X10^3/uL; Basophil% 0.5 % (0-1); Eosinophil# 0.01 X10^3/uL; Eosinophils% 0.1 % (0-5); Hemoglobin 8.1 g/dl (12.0-15.0); Lymphocyte # 1.09 X10^3/ul (4.0); Lymphocyte % 12.9 % (19-41); Mean Corp Hgb Conc 32.4 g/gl (32-36); Mean Corpuscular Volume 95.8 fL (81-99); Mean Platelet Vol. 11.1 fl (6.2-12.0); Monocyte# 0.81 X10^3/uL; Monocyte% 9.6 % (0-10); Neutrophil # 6.48 X10^3/uL (2.7-7.7); Neutrophil % 76.7 % (47-70); Platelet Count 124 K/mm3 (150-450); RBC Distribution Width CV 16.1 % (11.6-14.6); RBC Distribution Width SD 56.3 fl (35.1-43.9); Red Blood Count 2.61 M/mm3 (4.2-5.4); White Blood Count 8.5 K/mm3 (4.4-11.0)
[2019-04-04 04:29] LABS: POSITIVE COUNT NO; POSITIVE DIFFERENTIAL NO; POSITIVE MORPHOLOGY NO
[2019-04-04 04:36] LABS: Anion Gap 5 (5-15); BUN 31 mg/dL (7-18); BUN/Creat Ratio 22.8 RATIO (10-20); Calcium,Total 9.2 mg/dL (8.5-10.1); Chloride 111 mmol/L (98-107); Creatinine, Serum 1.36 mg/dL (0.55-1.02); EST Glomerular Filtration Rate 39 mL/min (>60); Est Glom Filt Rate - Afr Amer 48 mL/min (>60); Estimated Creatinine Clearance 26.59 ml/min; Glucose 106 mg/dL (74-106); Potassium 4.2 mmol/L (3.5-5.1); Sodium Level 144 mmol/L (136-145); Thyroid Stim Hormone (TSH) 1.89 uIU/mL (0.358-3.74)
[2019-04-04 06:10] LABS: Bedside Glucose 99 mg/dL (70-110)
[2019-04-04] MEDS: Lactated Ringers 1,000 ML 999 ML IV (06:37)
--- NOTE | 2019-04-04 06:58 | PCM.PN.INT ---
Subjective: Patient did okay overnight. No acute issues were reported. Patient has had marginal blood pressures, but no fluid boluses have been given. Patient continues to have a flat affect, but readily tracks with her eyes. General: Alert, No apparent distress, Confused, Disoriented, - - Appears more responsive compared to yesterday HEENT: Atraumatic, PERRLA, EOMI, Normocephalic, - - No scleral icterus or injection noted. Oral: Moist Mucosa, No Gingival or Mucosal Lesions/ Ulcerations Neck: Supple, No JVD, No Nodes, Trachea Midline Lungs: Clear to auscultation, Normal air movement, No rhonchi, No wheeze, No rales, - - Fair effort. Cardiovascular: Normal S1, Normal S2, No murmurs, Bradycardic, No rub noted, No Gallop Abdomen: Bowel Sounds Present, Soft, Non Tender, Non-Distended, Obese Extremities: No clubbing, No cyanosis, No edema, Capillary Refill Less than 3 Seconds Skin: No rashes, No breakdown Musculoskeletal: No Tenderness to Palpation of Joints or Extremities Lymphatic: No Cervical, Supraclavicular, or Inguinal Adenopathy Neurological: Neuro grossly intact - Grossly unchanged compared to yesterday. No focal deficits. Tremor does appear to be slightly improved compared to yesterday Psych/Mental Status: Flat Affect Vital Signs Temp Pulse Resp BP Pulse Ox 37.1 C 63 18 94/55 L 94 04/04/19 06:00 04/04/19 06:00 04/04/19 06:00 04/04/19 06:00 04/04/19 06:00 Oxygen Flow Rate (L/min) 2 Oxygen Delivery Method Room Air Weight: 80.4 kg Body Mass Index (BMI) 31.1 Finger Stick Blood Glucose 183 Intake and Output for Last 24 Hours 04/02/19 04/03/19 04/04/19 23:59 23:59 23:59 Intake Total 4052.9 / 4052.9 606.8 / 606.8 Output Total 1040 / 1040 235 / 235 Balance 3012.9 / 3012.9 371.8 / 371.8 Labs (Last 48 Hours) 04/03/19 04/03/19 04/03/19 06:40 06:50 06:50 WBC 12.5 H RBC 3.06 L Hgb 9.4 L Hct 29.0 L MCV 94.8 MCH 30.7 MCHC 32.4 RDW 15.4 H RDW Differential 52.8 H Plt Count 156 MPV 11.5 Immature Gran % (Auto) 0.200 Neut % (Auto) 87.7 H Lymph % (Auto) 3.8 L [place] % (Auto) 8.1 Eos % (Auto) 0.0 Baso % (Auto) 0.2 Absolute Neuts (auto) 11.0 H Absolute Lymphs (auto) 0.47 L Total Counted Not Reportable PT 14.3 INR 1.1 APTT 29.2 Sodium Potassium Chloride Carbon Dioxide Anion Gap BUN Creatinine Estim Creat Clear Calc Est GFR (MDRD) Af Amer Est GFR (MDRD) Non-Af BUN/Creatinine Ratio Glucose Lactic Acid Calcium Total Bilirubin AST ALT Alkaline Phosphatase Troponin I Total Protein Albumin Globulin Albumin/Globulin Ratio TSH Urine Color Urine Clarity Urine pH Ur Specific [place] Urine Protein Urine Glucose (UA) Urine Ketones Urine Occult Blood Urine Nitrite Urine Bilirubin Urine Urobilinogen Ur Leukocyte Esterase Urine RBC Urine WBC Ur Squamous Epith Cells Urine Bacteria Urine Mucus POC Glucose 183 H 04/03/19 04/03/19 04/03/19 06:50 06:50 06:50 WBC RBC Hgb Hct MCV MCH MCHC RDW RDW Differential Plt Count MPV Immature Gran % (Auto) Neut % (Auto) Lymph % (Auto) [place] % (Auto) Eos % (Auto) Baso % (Auto) Absolute Neuts (auto) Absolute Lymphs (auto) Total Counted PT INR APTT Sodium 138 Potassium 4.4 Chloride 104 Carbon Dioxide 31.0 Anion Gap 3 L BUN 40 H Creatinine 1.43 H Estim Creat Clear Calc 25.29 Est GFR (MDRD) Af Amer 45 L Est GFR (MDRD) Non-Af 37 L BUN/Creatinine Ratio 28.0 H Glucose 162 H Lactic Acid 2.5 H Calcium 10.4 H Total Bilirubin 0.30 AST 12 L ALT 19 Alkaline Phosphatase 57 Troponin I 0.151 H Total Protein 5.9 L Albumin 2.7 L Globulin 3.2 Albumin/Globulin Ratio 0.8 L TSH Urine Color Yellow Urine Clarity Cloudy Urine pH 7.0 Ur Specific Matthews 1.010 Urine Protein 30 H Urine Glucose (UA) Normal Urine Ketones Negative Urine Occult Blood 150 H Urine Nitrite Negative Urine Bilirubin Negative Urine Urobilinogen Normal Ur Leukocyte Esterase 500 H Urine RBC 0 SEEN Urine WBC >100 SEEN Ur Squamous Epith Cells 10-25 SEEN Urine Bacteria 0 SEEN Urine Mucus 0 SEEN POC Glucose 04/03/19 04/03/19 04/03/19 10:00 11:20 12:02 WBC RBC Hgb Hct MCV MCH MCHC RDW RDW Differential Plt Count MPV Immature Gran % (Auto) Neut % (Auto) Lymph % (Auto) [place] % (Auto) Eos % (Auto) Baso % (Auto) Absolute Neuts (auto) Absolute Lymphs (auto) Total Counted PT INR APTT Sodium Potassium Chloride Carbon Dioxide Anion Gap BUN Creatinine Estim Creat Clear Calc Est GFR (MDRD) Af Amer Est GFR (MDRD) Non-Af BUN/Creatinine Ratio Glucose Lactic Acid 2.8 H Calcium Total Bilirubin AST ALT Alkaline Phosphatase Troponin I 0.345 H Total Protein Albumin Globulin Albumin/Globulin Ratio TSH Urine Color Urine Clarity Urine pH Ur Specific [place] Urine Protein Urine Glucose (UA) Urine Ketones Urine Occult Blood Urine Nitrite Urine Bilirubin Urine Urobilinogen Ur Leukocyte Esterase Urine RBC Urine WBC Ur Squamous Epith Cells Urine Bacteria Urine Mucus POC Glucose 138 H 04/03/19 04/03/19 04/03/19 12:20 15:30 16:46 WBC RBC Hgb Hct MCV MCH MCHC RDW RDW Differential Plt Count MPV Immature Gran % (Auto) Neut % (Auto) Lymph % (Auto) [place] % (Auto) Eos % (Auto) Baso % (Auto) Absolute Neuts (auto) Absolute Lymphs (auto) Total Counted PT INR APTT Sodium Potassium Chloride Carbon Dioxide Anion Gap BUN Creatinine Estim Creat Clear Calc Est GFR (MDRD) Af Amer Est GFR (MDRD) Non-Af BUN/Creatinine Ratio Glucose Lactic Acid Calcium Total Bilirubin AST ALT Alkaline Phosphatase Troponin I 0.400 H 0.417 H Total Protein Albumin Globulin Albumin/Globulin Ratio TSH Urine Color Urine Clarity Urine pH Ur Specific [place] Urine Protein Urine Glucose (UA) Urine Ketones Urine Occult Blood Urine Nitrite Urine Bilirubin Urine Urobilinogen Ur Leukocyte Esterase Urine RBC Urine WBC Ur Squamous Epith Cells Urine Bacteria Urine Mucus POC Glucose 120 H 04/03/19 04/04/19 04/04/19 21:58 04:05 04:05 WBC 8.5 RBC 2.61 L Hgb 8.1 L Hct 25.0 L MCV 95.8 MCH 31.0 MCHC 32.4 RDW 16.1 H RDW Differential 56.3 H Plt Count 124 L MPV 11.1 Immature Gran % (Auto) 0.200 Neut % (Auto) 76.7 H Lymph % (Auto) 12.9 L [place] % (Auto) 9.6 Eos % (Auto) 0.1 Baso % (Auto) 0.5 Absolute Neuts (auto) 6.5 Absolute Lymphs (auto) 1.09 Total Counted Not Reportable PT INR APTT Sodium 144 Potassium 4.2 Chloride 111 H Carbon Dioxide 28.0 Anion Gap 5 BUN 31 H Creatinine 1.36 H Estim Creat Clear Calc 26.59 Est GFR (MDRD) Af Amer 48 L Est GFR (MDRD) Non-Af 39 L BUN/Creatinine Ratio 22.8 H Glucose 106 Lactic Acid Calcium 9.2 Total Bilirubin AST ALT Alkaline Phosphatase Troponin I Total Protein Albumin Globulin Albumin/Globulin Ratio TSH 1.89 Urine Color Urine Clarity Urine pH Ur Specific Matthews Urine Protein Urine Glucose (UA) Urine Ketones Urine Occult Blood Urine Nitrite Urine Bilirubin Urine Urobilinogen Ur Leukocyte Esterase Urine RBC Urine WBC Ur Squamous Epith Cells Urine Bacteria Urine Mucus POC Glucose 120 H 04/04/19 06:06 WBC RBC Hgb Hct MCV MCH MCHC RDW RDW Differential Plt Count MPV Immature Gran % (Auto) Neut % (Auto) Lymph % (Auto) [place] % (Auto) Eos % (Auto) Baso % (Auto) Absolute Neuts (auto) Absolute Lymphs (auto) Total Counted PT INR APTT Sodium Potassium Chloride Carbon Dioxide Anion Gap BUN Creatinine Estim Creat Clear Calc Est GFR (MDRD) Af Amer Est GFR (MDRD) Non-Af BUN/Creatinine Ratio Glucose Lactic Acid Calcium Total Bilirubin AST ALT Alkaline Phosphatase Troponin I Total Protein Albumin Globulin Albumin/Globulin Ratio TSH Urine Color Urine Clarity Urine pH Ur Specific [place] Urine Protein Urine Glucose (UA) Urine Ketones Urine Occult Blood Urine Nitrite Urine Bilirubin Urine Urobilinogen Ur Leukocyte Esterase Urine RBC Urine WBC Ur Squamous Epith Cells Urine Bacteria Urine Mucus POC Glucose 99 Microbiology 04/03/19 10:30 Urine Catheter - Hubbard Legionella Antigen - Final 04/03/19 10:30 Urine Catheter - Hubbard Streptococcus pneumoniae Antigen (M - Final Clinical Impression(s) from Imaging Studies Chest X-Ray 04/03/19 06:41 IMPRESSION: Left lower lobe pneumonia suspected. at 0716 Reported and signed by: Elías Guerra MD Electronically Signed: Elías Guerra, at 7:15 EDT Tel , Service support , Medical Necessity - Tobacco Use Smoking Status: Never smoker Assessment/Plan All Active Problems UTI (urinary tract infection) (Acute) HCAP (healthcare-associated pneumonia) (Acute) Alzheimer's dementia (Acute) Severe sepsis (Acute) Severe sepsis (Acute) Healthcare-associated pneumonia (Acute) UTI (urinary tract infection) (Acute) Elevated troponin I level (Acute) RECOMMENDATIONS: 1. Continue with empiric antibiotics 2. We will give an additional liter bolus this morning 3. Swallow evaluation 4. Verified CODE STATUS DNR Comfort Care arrest without intubation IMPRESSIONS: 1. Severe sepsis secondary to pneumonia versus UTI Patient appears to be doing well at this time. Patient did have a decrease in leukocytosis indicating probable response to antibiotics. Fever curve continues to improve. Patient's blood pressures have been marginal, but no pressors have been required. We will give an additional liter bolus this morning and see if patient is responsive to the volume. Patient possibly could leave the intensive care unit later today. 2. Alzheimer's or vascular dementia with possible delirium Unclear patient is developing some delirium at this time. Patient does have dementia at baseline, but exact etiology of baseline dementia is unclear per the notes. Patient is on Depakote and trazodone at baseline. These medications can be reinitiated if patient can pass a swallow evaluation. 3. Acute on chronic kidney disease stage III Patient's creatinine is slightly elevated compared to baseline. Patient also has an elevated BUN and a pattern consistent with prerenal etiology. Aggressive blood pressure support and hydration will be necessary. Continue to monitor. No indication for renal replacement therapy at this time. 4. Diabetes mellitus type 2 Monitor blood sugars closely. Sliding scale insulin will likely be sufficient. Patient does not appear to be able to take any p.o. intake at this time 5. Advanced age/dyslipidemia/lower baseline blood pressures/poor history Complicates care, management, recovery and prognosis. Patient's does report her having systolics in the 80s to 90s at baseline. No previous echocardiogram is available for review. Patient does have a slight elevation in troponin, but this may be secondary to hypoxemia on presentation. Code Visit Inpatient E&M: 88236 Subs Hosp L3
[2019-04-04] MEDS: Ipratropium/Albuterol Sulfate 3 ML AMPUL.NEB INHALATION ×3 (07:27→18:51)
--- NOTE | 2019-04-04 07:51 | PN_ITS ---
Patient Problems: Active and Suspected Problems HCAP (healthcare-associated pneumonia) (Acute) Alzheimer's dementia (Acute) Severe sepsis (Acute) Severe sepsis (Acute) Healthcare-associated pneumonia (Acute) UTI (urinary tract infection) (Acute) Elevated troponin I level (Acute) Subjective: The patient is more awake and tries to respond sometimes simple question. She is not able to recall the date of , age, time probably secondary to Alzheimer's dementia. She is still confused and disoriented x3. Vitals/I&O's: Vital Signs Temp Pulse Resp BP Pulse Ox 98.9 F 48 L 13 90/53 L 95 04/04/19 07:00 04/04/19 07:00 04/04/19 07:00 04/04/19 07:00 04/04/19 07:00 Oxygen Flow Rate (L/min) 2 Oxygen Delivery Method Room Air Weight: 177 lb 4.026 oz Body Mass Index (BMI) 31.1 Finger Stick Blood Glucose 183 Intake and Output for Last 24 Hours 04/02/19 04/03/19 04/04/19 23:59 23:59 23:59 Intake Total 4052.9 / 4052.9 606.8 / 606.8 Output Total 1040 / 1040 235 / 235 Balance 3012.9 / 3012.9 371.8 / 371.8 General: Confused, Disoriented, Lethargic HEENT: Atraumatic, PERRLA, EOMI, Normocephalic Neck: Supple, No JVD, Negative Carotid Bruits Lungs: No rhonchi, No wheeze, No rales, Diminished - Air entry diminished on the left side Cardiovascular: Regular rate, Regular Rhythm, Normal S1, Normal S2 Abdomen: Bowel Sounds Present, Soft, Non Tender, Non-Distended, - - Hubbard catheter present. Hubbard catheter was inserted in the ED. Cloudy urine with white flakes Extremities: Capillary Refill Less than 3 Seconds, Edema Skin: No rashes, No breakdown Musculoskeletal: Arthritic Changes, Muscle Wasting Neurological: Cranial nerves II-XII grossly intact, Deep Tendon Reflexes 2+/4 and Symmetrical, Neuro grossly intact Microbiology Past 72 Hours 04/03/19 10:30 Urine Catheter - Hubbard Legionella Antigen - Final 04/03/19 10:30 Urine Catheter - Hubbard Streptococcus pneumoniae Antigen (M - Final Laboratory Results 04/03/19 10:00: Troponin I 0.345 H 04/03/19 11:20: Lactic Acid 2.8 H 04/03/19 12:02: POC Glucose 138 H 04/03/19 12:20: Troponin I 0.400 H 04/03/19 15:30: Troponin I 0.417 H 04/03/19 16:46: POC Glucose 120 H 04/03/19 21:58: POC Glucose 120 H 04/04/19 04:05: Sodium 144, Potassium 4.2, Chloride 111 H, Carbon Dioxide 28.0, Anion Gap 5, BUN 31 H, Creatinine 1.36 H, Estim Creat Clear Calc 26.59, Est GFR (MDRD) Af Amer 48 L, Est GFR (MDRD) Non-Af 39 L, BUN/Creatinine Ratio 22.8 H, Glucose 106, Calcium 9.2, TSH 1.89 04/04/19 04:05: WBC 8.5, RBC 2.61 L, Hgb 8.1 L, Hct 25.0 L, MCV 95.8, MCH 31.0, MCHC 32.4, RDW 16.1 H, RDW Differential 56.3 H, Plt Count 124 L, MPV 11.1, Immature Gran % (Auto) 0.200, Neut % (Auto) 76.7 H, Lymph % (Auto) 12.9 L, [place] % (Auto) 9.6, Eos % (Auto) 0.1, Baso % (Auto) 0.5, Absolute Neuts (auto) 6.5, Absolute Lymphs (auto) 1.09, Total Counted Not Reportable 04/04/19 06:06: POC Glucose 99 Current Medications Acetaminophen (Tylenol) 650 mg PO Q6H PRN PRN PRN Reason: Mild Pain (1-3)/Temp > 100.7 F Acetaminophen (Tylenol) 650 mg RECTAL Q4H PRN PRN PRN Reason: pain/fever Last Admin: 04/03/19 14:24 Dose: 650 mg Documented by: Albuterol Sulfate (Ventolin Aerosols) 2.5 mg INHALATION Q2H PRN PRN PRN Reason: SOB/Wheezing Albuterol/Ipratropium (Duoneb) 3 ml INHALATION Q6HWA.RT JESENIA Last Admin: 04/04/19 07:27 Dose: 3 ml Documented by: Bisacodyl (Dulcolax) 10 mg RECTAL DAILY PRN PRN PRN Reason: Constipation Dextrose (D50w Syringe) 0 gm IV X1 PRN; Protocol PRN Reason: Hypoglycemia Enoxaparin Sodium (Lovenox) 30 mg SC DAILY@1000 JESENIA Last Admin: 04/03/19 13:29 Dose: 30 mg Documented by: Glucagon () 1 mg IM .X1 PRN PRN Reason: Hypoglycemia Guaifenesin (Mucinex) 1,200 mg PO BID [facility] Last Admin: 04/03/19 20:50 Dose: Not Given Documented by: Sodium Chloride () 1,000 mls @ 50 mls/hr IV .Q20H [facility] Last Admin: 04/04/19 00:40 Dose: 50 mls/hr Documented by: Piperacillin Sod/Tazobactam (Sod 3.375 gm/ Sodium Chloride) 50 mls @ 12.5 mls/hr IV Q8 [facility] Last Admin: 04/04/19 05:08 Dose: 12.5 mls/hr Documented by: Insulin Human Lispro (Humalog Kwikpen (Bkc)) 0 unit SC ACHS [facility]; Protocol Last Admin: 04/04/19 06:16 Dose: Not Given Documented by: Morphine Sulfate () 2 mg IV Q3H PRN PRN PRN Reason: Severe pain (7-10/10) Ondansetron HCl (Zofran) 4 mg IV Q8H PRN PRN PRN Reason: NAUSEA/VOMITING Polyethylene Glycol (Miralax) 17 gm PO DAILY [facility] Last Admin: 04/03/19 10:08 Dose: Not Given Documented by: Promethazine HCl (Phenergan) 12.5 mg IV Q6H PRN PRN PRN Reason: Breakthrough Nausea/Vomiting Medical Necessity - Tobacco Use Smoking Status: Never smoker Assessment/Plan All Active Problems UTI (urinary tract infection) (Acute) HCAP (healthcare-associated pneumonia) (Acute) Alzheimer's dementia (Acute) Severe sepsis (Acute) Severe sepsis (Acute) Healthcare-associated pneumonia (Acute) UTI (urinary tract infection) (Acute) Elevated troponin I level (Acute) The patient is a 83 year old F with multiple comorbidities as listed above, senior care resident on wheelchair was brought to ER with high fever, 80% on room air and unresponsiveness. halfway heart rate was 106/min, temperature 103.5, BP 138/80 about 5 AM in SNF was admitted with hypotension and mild hypoxia. In ED, her blood pressure was 95/47, map 63, pulse ox 96% on 2 L of oxygen. Chest x-ray shows retrocardiac infiltrate. UA is positive of pyuria, LE 500, WBC more than 107 but nitrite negative 1. Severe sepsis (tachycardia, hypotension, fever, leukocytosis and lactic acidosis, possible septic shock secondary to left lower lobe pneumonia with suspicion of aspiration pneumonia and UTI: Patient is being admitted in ICU. Blood pressure is still borderline, 91/51, map around 65. 1 more normal sign bolus ordered. Basic labs shows leukocytosis with left shift, lactic acid 2.5. Started on IV Zosyn in ER and will continue it. Bronchodilator as needed. Chest physiotherapy and oxygen therapy as needed. [employer] consult. BiPAP as needed. Patient is DNR CC arrest therefore no intubation. Speech/swallow evaluation when patient is more stable. Keep n.p.o . Urinary antigens are negative. Blood cultures x2 and urine culture pending. MRSA nasal screen is ordered 2. Alzheimer's dementia or possible vascular dementia: Patient has a history of TIA, and dyslipidemia. At home, patient is on Aricept, Ativan 0.5 mg at bedtime, Depakote 50 mg twice daily and trazodone. Hold neuropsychiatric medications until patient is awake and swallow reflexes evaluated. 3. Acute kidney injury on CKD stage III: Patient's baseline creatinine runs around 1.1-1.2. Probably from prerenal/dehydration or ATN from sepsis creatinine improved 1.3. 4. Diabetes mellitus type 2: Glucose 162. Accu-Chek before meals and at bedtime and cover with Humalog sliding scale. Sugars are controlled. 5. Other comorbidities include chronic hyportension, dyslipidemia: As per the patient's , her baseline blood pressure is about 80s and 90s systolic AND doesn't get symptoms/signs of hypotension. DVT prophylaxis, moderate to high risk: Lovenox and bilateral SCDs. Goal of life/advanced directive. Discussed with the patient's as currently patient is minimally responsive and has advanced Alzheimer's dementia As per the patient's , she does not want artificial life support including intubation, ventilator and/chest compression and defibrillator/cardioversion but okay with IV fluid, vasopressors and central line. halfway paper states DNR CC arrest. Patient is DNR CC arrest. Microbiology Past 72 Hours 04/03/19 10:30 Urine Catheter - Hubbard Legionella Antigen - Final 04/03/19 10:30 Urine Catheter - Hubbard Streptococcus pneumoniae Antigen (M - Final Laboratory Results 04/03/19 10:00: Troponin I 0.345 H 04/03/19 11:20: Lactic Acid 2.8 H 04/03/19 12:02: POC Glucose 138 H 04/03/19 12:20: Troponin I 0.400 H 04/03/19 15:30: Troponin I 0.417 H 04/03/19 16:46: POC Glucose 120 H 04/03/19 21:58: POC Glucose 120 H 04/04/19 04:05: Sodium 144, Potassium 4.2, Chloride 111 H, Carbon Dioxide 28.0, Anion Gap 5, BUN 31 H, Creatinine 1.36 H, Estim Creat Clear Calc 26.59, Est GFR (MDRD) Af Amer 48 L, Est GFR (MDRD) Non-Af 39 L, BUN/Creatinine Ratio 22.8 H, Glucose 106, Calcium 9.2, TSH 1.89 04/04/19 04:05: WBC 8.5, RBC 2.61 L, Hgb 8.1 L, Hct 25.0 L, MCV 95.8, MCH 31.0, MCHC 32.4, RDW 16.1 H, RDW Differential 56.3 H, Plt Count 124 L, MPV 11.1, Immature Gran % (Auto) 0.200, Neut % (Auto) 76.7 H, Lymph % (Auto) 12.9 L, [place] % (Auto) 9.6, Eos % (Auto) 0.1, Baso % (Auto) 0.5, Absolute Neuts (auto) 6.5, Absolute Lymphs (auto) 1.09, Total Counted Not Reportable 04/04/19 06:06: POC Glucose 99 Clinical Impression(s) from Imaging Studies Chest X-Ray 04/03/19 06:41 IMPRESSION: Left lower lobe pneumonia suspected. Code Visit Inpatient E&M: 32856 Subs Hosp L3
--- NOTE | 2019-04-04 09:21 | CASEMGMT ---
Addendum entered by Demetrice Bernabe 04/04/19 12:01: Suma from [facility] called this SW back, states pt is up w/a walker, and is on a normal diet w/supervision. SW faxed updates and placed green sheet on chart w/transport form in anticipation of weekend discharge. Since no new precert is needed pt can return to [facility] at any time. SVETLANA Toney Original Note: SW participated in ICU rounds today. Pt will likely go to PCU today. Pt can return to [facility] whenever ready, has a bedhold. JUSTEN asked Suma at [facility] how pt normally gets around and how she eats. Suma to let this SW know. SVETLANA Toney
[2019-04-04] MEDS: Enoxaparin 30 MG/0.3 ML Syringe SC (10:57)
[2019-04-04 11:06] LABS: Bedside Glucose 105 mg/dL (70-110)
--- NOTE | 2019-04-04 13:13 | NURSING ---
report called to [facility] for transfer to room 105, present
[2019-04-04 16:46] LABS: Bedside Glucose 111 mg/dL (70-110)
[2019-04-04] MEDS: guaiFENesin 1,200 MG Tablet 1200 MG PO (22:33)
[2019-04-04 22:55] LABS: Bedside Glucose 135 mg/dL (70-110)
[2019-04-05] VITALS (13 sets, daily range): BP systolic 104–121; BP diastolic 46–75; PULSE 47–84; RESP 16–20; TEMP 37.3–38; O2SAT 90–96
[2019-04-05 06:41] LABS: Bedside Glucose 128 mg/dL (70-110)
[2019-04-05] MEDS: Ipratropium/Albuterol Sulfate 3 ML AMPUL.NEB INHALATION ×3 (06:48→19:47)
--- NOTE | 2019-04-05 07:57 | PN_ITS ---
Subjective: Patient transferred out of the intensive care unit yesterday. No acute issues have been reported overnight. Patient remains on room air. Patient is not very interactive to provide any history, but opens eyes and tracks readily. General: No apparent distress, - - RASS -2. No accessory muscle use noted. HEENT: Atraumatic, PERRLA, EOMI, Normocephalic, - - No scleral icterus or injection noted. Oral: Moist Mucosa, No Gingival or Mucosal Lesions/ Ulcerations Neck: Supple, No JVD, No Nodes, Trachea Midline Lungs: Clear to auscultation, Normal air movement, No rhonchi, No wheeze, No rales Cardiovascular: Regular rate, Regular Rhythm, Normal S1, Normal S2, Murmur, No rub noted, No Gallop Abdomen: Bowel Sounds Present, Soft, Non Tender, Non-Distended Extremities: No clubbing, No cyanosis, Edema - Trace Skin: No rashes, No breakdown Musculoskeletal: No Tenderness to Palpation of Joints or Extremities Lymphatic: No Cervical, Supraclavicular, or Inguinal Adenopathy Neurological: Neuro grossly intact - No significant change compared to previous Psych/Mental Status: Flat Affect Vital Signs Temp Pulse Resp BP Pulse Ox 37.3 C 60 18 121/75 H 90 04/05/19 04:30 04/05/19 06:48 04/05/19 06:48 04/05/19 04:30 04/05/19 06:48 Oxygen Flow Rate (L/min) 2 Oxygen Delivery Method Room Air Weight: 81.1 kg Body Mass Index (BMI) 31.1 Finger Stick Blood Glucose 183 Intake and Output for Last 24 Hours 04/03/19 04/04/19 04/05/19 23:59 23:59 23:59 Intake Total 4052.9 / 4052.9 3235.0 / 3235.0 321.6 / 321.6 Output Total 1040 / 1040 485 / 485 Balance 3012.9 / 3012.9 2750.0 / 2750.0 321.6 / 321.6 Labs (Last 48 Hours) 04/03/19 04/03/19 04/03/19 10:00 11:20 12:02 WBC RBC Hgb Hct MCV MCH MCHC RDW RDW Differential Plt Count MPV Immature Gran % (Auto) Neut % (Auto) Lymph % (Auto) [place] % (Auto) Eos % (Auto) Baso % (Auto) Absolute Neuts (auto) Absolute Lymphs (auto) Total Counted Sodium Potassium Chloride Carbon Dioxide Anion Gap BUN Creatinine Estim Creat Clear Calc Est GFR (MDRD) Af Amer Est GFR (MDRD) Non-Af BUN/Creatinine Ratio Glucose Lactic Acid 2.8 H Calcium Troponin I 0.345 H TSH POC Glucose 138 H 04/03/19 04/03/19 04/03/19 12:20 15:30 16:46 WBC RBC Hgb Hct MCV MCH MCHC RDW RDW Differential Plt Count MPV Immature Gran % (Auto) Neut % (Auto) Lymph % (Auto) [place] % (Auto) Eos % (Auto) Baso % (Auto) Absolute Neuts (auto) Absolute Lymphs (auto) Total Counted Sodium Potassium Chloride Carbon Dioxide Anion Gap BUN Creatinine Estim Creat Clear Calc Est GFR (MDRD) Af Amer Est GFR (MDRD) Non-Af BUN/Creatinine Ratio Glucose Lactic Acid Calcium Troponin I 0.400 H 0.417 H TSH POC Glucose 120 H 04/03/19 04/04/19 04/04/19 21:58 04:05 04:05 WBC 8.5 RBC 2.61 L Hgb 8.1 L Hct 25.0 L MCV 95.8 MCH 31.0 MCHC 32.4 RDW 16.1 H RDW Differential 56.3 H Plt Count 124 L MPV 11.1 Immature Gran % (Auto) 0.200 Neut % (Auto) 76.7 H Lymph % (Auto) 12.9 L [place] % (Auto) 9.6 Eos % (Auto) 0.1 Baso % (Auto) 0.5 Absolute Neuts (auto) 6.5 Absolute Lymphs (auto) 1.09 Total Counted Not Reportable Sodium 144 Potassium 4.2 Chloride 111 H Carbon Dioxide 28.0 Anion Gap 5 BUN 31 H Creatinine 1.36 H Estim Creat Clear Calc 26.59 Est GFR (MDRD) Af Amer 48 L Est GFR (MDRD) Non-Af 39 L BUN/Creatinine Ratio 22.8 H Glucose 106 Lactic Acid Calcium 9.2 Troponin I TSH 1.89 POC Glucose 120 H 04/04/19 04/04/19 04/04/19 06:06 10:50 16:41 WBC RBC Hgb Hct MCV MCH MCHC RDW RDW Differential Plt Count MPV Immature Gran % (Auto) Neut % (Auto) Lymph % (Auto) [place] % (Auto) Eos % (Auto) Baso % (Auto) Absolute Neuts (auto) Absolute Lymphs (auto) Total Counted Sodium Potassium Chloride Carbon Dioxide Anion Gap BUN Creatinine Estim Creat Clear Calc Est GFR (MDRD) Af Amer Est GFR (MDRD) Non-Af BUN/Creatinine Ratio Glucose Lactic Acid Calcium Troponin I TSH POC Glucose 99 105 111 H 04/04/19 04/05/19 22:26 06:35 WBC RBC Hgb Hct MCV MCH MCHC RDW RDW Differential Plt Count MPV Immature Gran % (Auto) Neut % (Auto) Lymph % (Auto) [place] % (Auto) Eos % (Auto) Baso % (Auto) Absolute Neuts (auto) Absolute Lymphs (auto) Total Counted Sodium Potassium Chloride Carbon Dioxide Anion Gap BUN Creatinine Estim Creat Clear Calc Est GFR (MDRD) Af Amer Est GFR (MDRD) Non-Af BUN/Creatinine Ratio Glucose Lactic Acid Calcium Troponin I TSH POC Glucose 135 H 128 H Microbiology 04/03/19 06:50 Urine, Catheterized Urine Culture - Preliminary Proteus sp. Gram positive organism 04/03/19 10:30 Urine Catheter - Hubbard Legionella Antigen - Final 04/03/19 10:30 Urine Catheter - Hubbard Streptococcus pneumoniae Antigen (M - Final Medical Necessity - Tobacco Use Smoking Status: Never smoker Assessment/Plan All Active Problems UTI (urinary tract infection) (Acute) HCAP (healthcare-associated pneumonia) (Acute) Alzheimer's dementia (Acute) Severe sepsis (Acute) Severe sepsis (Acute) Healthcare-associated pneumonia (Acute) UTI (urinary tract infection) (Acute) Elevated troponin I level (Acute) RECOMMENDATIONS: 1. Continue with empiric antibiotics 2. Likely okay to discontinue IV fluids 3. Increase activity as tolerated 4. Verified CODE STATUS DNR Comfort Care arrest without intubation 5. Hemodynamically stable on room air. Will sign off from a critical care perspective IMPRESSIONS: 1. Severe sepsis secondary to Proteus UTI Patient appears to be doing well at this time. Patient did have a d ecrease in leukocytosis indicating probable response to antibiotics. Fever curve continues to improve. Patient's blood pressures have normalized and no pressors have been required. Likely okay to discontinue IV fluids. 2. Alzheimer's or vascular dementia with possible delirium Unclear patient is developing some delirium at this time. Patient does have dementia at baseline, but exact etiology of baseline dementia is unclear per the notes. Patient is on Depakote and trazodone at baseline. These medications can be reinitiated if patient can pass a swallow evaluation. 3. Acute on chronic kidney disease stage III Patient's creatinine is slightly elevated compared to baseline. Patient also has an elevated BUN and a pattern consistent with prerenal etiology. Aggressive blood pressure support and hydration will be necessary. Continue to monitor. No indication for renal replacement therapy at this time. 4. Diabetes mellitus type 2 Monitor blood sugars closely. Sliding scale insulin will likely be sufficient. Patient does not appear to be able to take any p.o. intake at this time 5. Advanced age/dyslipidemia/lower baseline blood pressures/poor history Complicates care, management, recovery and prognosis. Patient's does report her having systolics in the 80s to 90s at baseline. No previous echocardiogram is available for review. Patient does have a slight elevation in troponin, but this may be secondary to hypoxemia on presentation. Given goals of therapy, doubt patient would be a candidate for cardiac intervention. Code Visit Inpatient E&M: 22187 Subs Hosp L2
[2019-04-05] MEDS: Enoxaparin 30 MG/0.3 ML Syringe SC (09:11)
[2019-04-05] MEDS: guaiFENesin 1,200 MG Tablet 1200 MG PO ×2 (09:12→21:03)
[2019-04-05] MEDS: Polyethylene Glycol 3350 17 GM PACKET PO (09:15)
[2019-04-05 11:01] LABS: Bedside Glucose 237 mg/dL (70-110)
[2019-04-05] MEDS: Insulin Lispro 100 UNIT/ML INSULN.PEN SC ×2 (13:21→21:02)
--- NOTE | 2019-04-05 13:49 | CPS ---
patient unable to do PEP device
--- NOTE | 2019-04-05 13:49 | CPS ---
Patient unable to do PEP
--- NOTE | 2019-04-05 14:29 | PCM.PROGNOTE ---
<Jay Saenz - Last Filed: 04/05/19 14:29> Patient Problems: Active and Suspected Problems HCAP (healthcare-associated pneumonia) (Acute) Alzheimer's dementia (Acute) Severe sepsis (Acute) Severe sepsis (Acute) Healthcare-associated pneumonia (Acute) UTI (urinary tract infection) (Acute) Elevated troponin I level (Acute) Subjective: Pt making eye contact, not speaking today. Not answering my questions. present and notes improvement in her mentation, states she had prior to my arrival more talkative and seemed like her normal self. - Physical Exam General: Alert, Cooperative HEENT: Atraumatic, PERRLA, EOMI, Normocephalic Neck: Supple, No JVD, Negative Carotid Bruits Lungs: Clear to auscultation, Normal air movement Cardiovascular: Regular rate, No murmurs Abdomen: Bowel Sounds Present, Soft, Non Tender Extremities: No edema, Capillary Refill Less than 3 Seconds Skin: No rashes, No breakdown Musculoskeletal: No Tenderness to Palpation of Joints or Extremities Neurological: Cranial nerves II-XII grossly intact Psych/Mental Status: Normal Affect, Appropriate Vital Signs Temp Pulse Resp BP Pulse Ox 99.7 F H 73 18 107/53 L 92 04/05/19 09:39 04/05/19 09:44 04/05/19 13:24 04/05/19 09:39 04/05/19 09:39 Oxygen Flow Rate (L/min) 2 Oxygen Delivery Method Room Air Weight: 178 lb 12.718 oz Body Mass Index (BMI) 31.1 Finger Stick Blood Glucose 183 Intake and Output for Last 24 Hours 04/03/19 04/04/19 04/05/19 23:59 23:59 23:59 Intake Total 4052.9 / 4052.9 3235.0 / 3235.0 561.6 / 561.6 Output Total 1040 / 1040 485 / 485 Balance 3012.9 / 3012.9 2750.0 / 2750.0 561.6 / 561.6 Microbiology Past 72 Hours 04/03/19 06:50 Urine Culture - Preliminary Urine, Catheterized Proteus mirabilis Gram positive organism 04/03/19 06:35 Blood Culture - Preliminary Blood Culture (Wb) - Left Wrist No growth in 48 hours. 04/03/19 06:50 Blood Culture - Preliminary Blood Culture (Wb) - Anticubital Right No growth in 48 hours. 04/03/19 10:30 Legionella Antigen - Final Urine Catheter - Hubbard Streptococcus pneumoniae Antigen (M - Final POC Glucose 04/05/19 04/05/19 04/04/19 10:56 06:35 22:26 POC Glucose 237 H 128 H 135 H 04/04/19 16:41 POC Glucose 111 H Medical Necessity - Tobacco Use Smoking Status: Never smoker Assessment/Plan All Active Problems UTI (urinary tract infection) (Acute) HCAP (healthcare-associated pneumonia) (Acute) Alzheimer's dementia (Acute) Severe sepsis (Acute) Severe sepsis (Acute) Healthcare-associated pneumonia (Acute) UTI (urinary tract infection) (Acute) Elevated troponin I level (Acute) 1. Severe sepsis 2/2 UTI (proteus) CAP suspicious for aspiration - UA + and retrocardiac infiltrate on CXR - continue zosyn, aerosols, Bipap prn. Urine antigens neg. UrCx with proteus and GP organism. Blood cultures neg x 48 hours. Afebrile not leukocytosis. Off o2. -Echo EF 60%, 2+ MVI/TVI, RVSP 43 mmHg. 2. Alzheimers dementia, possibly vascular, hx TIA - resume aricept,depakote, risperdal. Mentation improving per . Staring and not responding to my questions. 3. MARIA LUZ on CKD III - 2/2 sepsis 4. DMt2 - SSI 5. HTN, HLD - home meds DVT ppx: Lovenox DC planning: return to SNF when stable. Possibly tomorrow. This patient was seen by Jay Saenz PA-C under the supervision of Dr. Forbes. <Mike Forbes - Last Filed: 04/05/19 17:08> Subjective: Seen and examined. Patient opens eyes and makes eye contact but nonverbal. I think this because of advanced Alzheimer's dementia. As compared to the first day, definitely there is improvement in mental status. She talks sometimes with her . - Physical Exam General: Cooperative, Confused - At times confused, Disoriented, Lethargic HEENT: Atraumatic, PERRLA, EOMI, Normocephalic Neck: Supple, No JVD, Negative Carotid Bruits Lungs: Clear to auscultation, Normal air movement, No rhonchi, No wheeze, No rales, Diminished - Air entry is diminished on the left lung base. Cardiovascular: Regular rate, Regular Rhythm, Normal S1, Normal S2, No murmurs Abdomen: Bowel Sounds Present, Soft, Non Tender, Non-Distended Extremities: No edema, Capillary Refill Less than 3 Seconds Skin: No rashes, No breakdown Musculoskeletal: No Tenderness to Palpation of Joints or Extremities, Arthritic Changes, Muscle Wasting Neurological: Cranial nerves II-XII grossly intact, Deep Tendon Reflexes 2+/4 and Symmetrical, Neuro grossly intact Psych/Mental Status: Normal Affect, Appropriate Vital Signs Temp Pulse Resp BP Pulse Ox 99.7 F H 69 16 104/47 L 96 04/05/19 15:40 04/05/19 15:40 04/05/19 15:40 04/05/19 15:40 04/05/19 15:40 Oxygen Flow Rate (L/min) 2 Oxygen Delivery Method Room Air Weight: 178 lb 12.718 oz Body Mass Index (BMI) 31.1 Finger Stick Blood Glucose 183 Intake and Output for Last 24 Hours 04/03/19 04/04/19 04/05/19 23:59 23:59 23:59 Intake Total 4052.9 / 4052.9 3235.0 / 3235.0 561.6 / 561.6 Output Total 1040 / 1040 485 / 485 Balance 3012.9 / 3012.9 2750.0 / 2750.0 561.6 / 561.6 Microbiology Past 72 Hours 04/03/19 06:50 Urine Culture - Preliminary Urine, Catheterized Proteus mirabilis Gram positive organism 04/03/19 06:35 Blood Culture - Preliminary Blood Culture (Wb) - Left Wrist No growth in 48 hours. 04/03/19 06:50 Blood Culture - Preliminary Blood Culture (Wb) - Anticubital Right No growth in 48 hours. 04/03/19 10:30 Legionella Antigen - Final Urine Catheter - Hubbard Streptococcus pneumoniae Antigen (M - Final POC Glucose 04/05/19 04/05/19 04/05/19 16:09 10:56 06:35 POC Glucose 136 H 237 H 128 H 04/04/19 22:26 POC Glucose 135 H Assessment/Plan This patient was seen in conjunction with Jay JOY. I have independently interviewed and examined the patient and reviewed pertinent history, examination findings, laboratory and plan of management. I have reviewed the note and agree with the documented findings with the few additional points. In brief, The patient is a 83 year old F with multiple comorbidities as listed above, retirement resident on wheelchair was brought to ER with high fever, 80% on room air and unresponsiveness. prison heart rate was 106/min, temperature 103.5, BP 138/80 about 5 AM in SNF was admitted with hypotension and mild hypoxia. In ED, her blood pressure was 95/47, map 63, pulse ox 96% on 2 L of oxygen.Chest x-ray shows retrocardiac infiltrate. UA is positive of pyuria, LE 500, WBC more than 107 but nitrite negative patient was admitted in ICU then transferred to PCU for severe sepsis secondary to left lower lobe pneumonia probably aspiration pneumonia with UTI: Patient is on IV Zosyn. On bronchodilator, chest physiotherapy, incentive spirometry. Urine culture is positive more than 100,000 Proteus mirabilis and 1000-10,000 gram-positive organism. Urinary antigens are negative. Patient also has significant advanced Alzheimer's dementia or possible vascular dementia: Depakote 250 mg twice daily, Aricept and Risperdal resumed. Patient also has acute kidney injury showed improvement of creatinine 1.3. Baseline is 1.1-1.2. Patient blood sugars are controlled. She had a mildly elevated troponin flat intermittent 0.34, 0.4. Echo was done and reported as EF 60% with 2+ MR, TR with RVSP 43 mmHg. Patient is being followed by speech therapist. Currently on dysphagia diet with applesauce. They did not see any overt signs and symptoms of aspiration. Recommended mechanical soft texture with thin liquid. Our plan is to discharge back to SNF. I have discussed my assessment with Jay JOY and orders have been reviewed. Status: DNR CC arrest Microbiology Past 72 Hours 04/03/19 06:50 Urine, Catheterized Urine Culture - Preliminary Proteus mirabilis Gram positive organism 04/03/19 06:35 Blood Culture (Wb) - Left Wrist Blood Culture - Preliminary No growth in 48 hours. 04/03/19 06:50 Blood Culture (Wb) - Anticubital Right Blood Culture - Preliminary No growth in 48 hours. 04/03/19 10:30 Urine Catheter - Hubbard Legionella Antigen - Final 04/03/19 10:30 Urine Catheter - Hubbard Streptococcus pneumoniae Antigen (M - Final Laboratory Results 04/04/19 22:26: POC Glucose 135 H 04/05/19 06:35: POC Glucose 128 H 04/05/19 10:56: POC Glucose 237 H 04/05/19 16:09: POC Glucose 136 H Code Visit Inpatient E&M: 61607 Subs Hosp L3
[2019-04-05] MEDS: 0.9% Normal Saline 1,000 ML 50 ML IV (15:47)
[2019-04-05 16:15] LABS: Bedside Glucose 136 mg/dL (70-110)
[2019-04-05] MEDS: Divalproex Sodium 250 MG Tablet PO (16:44)
[2019-04-05] MEDS: Acetaminophen 325 MG Tablet 650 MG PO (21:03)
[2019-04-05] MEDS: RisperiDONE 1 MG Tablet PO (21:03)
[2019-04-05] MEDS: Donepezil HCl 10 MG Tablet PO (21:03)
[2019-04-05 21:41] LABS: Bedside Glucose 161 mg/dL (70-110)
[2019-04-06] VITALS (7 sets, daily range): BP systolic 114–118; BP diastolic 61–79; PULSE 58–83; RESP 16; TEMP 36.7–36.8; O2SAT 93
[2019-04-06 05:59] LABS: Anion Gap 7 (5-15); BUN 26 mg/dL (7-18); BUN/Creat Ratio 21.8 RATIO (10-20); Calcium,Total 9.5 mg/dL (8.5-10.1); Chloride 115 mmol/L (98-107); Creatinine, Serum 1.19 mg/dL (0.55-1.02); EST Glomerular Filtration Rate 46 mL/min (>60); Est Glom Filt Rate - Afr Amer 56 mL/min (>60); Estimated Creatinine Clearance 30.39 ml/min; Glucose 108 mg/dL (74-106); Potassium 3.8 mmol/L (3.5-5.1); Sodium Level 146 mmol/L (136-145)
[2019-04-06 06:41] LABS: Bedside Glucose 123 mg/dL (70-110)
[2019-04-06] MEDS: Ipratropium/Albuterol Sulfate 3 ML AMPUL.NEB INHALATION (06:53)
[2019-04-06] MEDS: Divalproex Sodium 250 MG Tablet PO (07:33)
[2019-04-06] MEDS: guaiFENesin 1,200 MG Tablet 1200 MG PO (08:54)
[2019-04-06] MEDS: Enoxaparin 30 MG/0.3 ML Syringe SC (08:55)
[2019-04-06] MEDS: Polyethylene Glycol 3350 17 GM PACKET PO (09:02)
[2019-04-06] MEDS: RisperiDONE 0.5 MG Tablet PO (09:04)
[2019-04-06] MEDS: Insulin Lispro 100 UNIT/ML INSULN.PEN SC (11:09)
--- NOTE | 2019-04-06 11:14 | PCM.EXTCARCO ---
<Jay Saenz - Last Filed: 04/06/19 11:14> - Diet 04/04/19 15:05 Diet: Regular Diet Food consistency:: Mechanical Soft/Ground Liquid Consistency:: Regular/Thin Is pt able to select menu?: No Diet Comments: Supervision by staff / family; intake via straw; meds w/ purees (whole) - Routine Orders/Code Status Suppository Type: Dulcolax 10mg Suppository Frequency: Daily PRN Routine Lab Work: CBC - 3 days, BMP - 3 days [facility]ound[facility]s) Left kruse Wound Type: Skin Tear - Therapies Physical Therapy: Eval and Treat Occupational Therapy: Eval and Treat Speech Therapy: Eval and Treat - Problem/Diagnosis (1) Healthcare-associated pneumonia Status: Acute Current Visit: Yes (2) Severe sepsis Status: Acute Current Visit: Yes (3) UTI (urinary tract infection) Status: Acute Current Visit: Yes (4) Diabetes mellitus Status: Chronic Current Visit: No (5) History of TIA (transient ischemic attack) Status: Chronic Current Visit: No (6) Hypertension Status: Chronic Current Visit: No (7) Pure hypercholesterolemia Status: Chronic Current Visit: No (8) Alzheimer's dementia Status: Chronic Current Visit: Yes - Allergies/Procedures Done in Hospital Allergies/Adverse Reactions: Allergies No Known Allergies Allergy (Verified 04/03/19 06:38) Procedures: 2-D Echocardiogram - Type of Care/Length of Stay Estimated LOS: Convalescent Care Less Than 30 days Type of Care Needed: Skilled Rehab Potential: Fair Prognosis: Fair - Additional Orders/Day of Discharge Day of Discharge: 04/06/19 - Dietary and Speech Recommendations Dietitian Recommendations/Changes: When appropriate for PO diet, rec regular diet d/t pt advanced age and dementia. - Follow Up Care Primary Care Physician: Rodney Vance MD [NON-STAFF] - Please follow up with your Primary Care Physician in: 1-2 weeks <Mike Forbes - Last Filed: 04/06/19 12:36> - Diet 04/04/19 15:05 Diet: Regular Diet Food consistency:: Mechanical Soft/Ground Liquid Consistency:: Regular/Thin Is pt able to select menu?: No Diet Comments: Supervision by staff / family; intake via straw; meds w/ purees (whole) - Problem/Diagnosis (1) HCAP (healthcare-associated pneumonia) Status: Acute Current Visit: Yes (2) Alzheimer's dementia Status: Chronic Current Visit: Yes (3) UTI (urinary tract infection) Status: Acute Current Visit: No (4) Vascular dementia Status: Chronic Current Visit: No (5) Diabetes mellitus Status: Chronic Current Visit: No (6) History of TIA (transient ischemic attack) Status: Chronic Current Visit: No (7) Hypertension Status: Chronic Current Visit: No (8) Pure hypercholesterolemia Status: Chronic Current Visit: No (9) Severe sepsis Status: Acute Current Visit: Yes
[2019-04-06 11:25] LABS: Bedside Glucose 184 mg/dL (70-110)
--- NOTE | 2019-04-06 11:46 | NURSING ---
Pt to be discharged and transferred back to [facility] today. Report called to Sisi MARMOLEJO at [facility].
--- NOTE | 2019-04-06 13:30 | PCA ---
Faxed discharge paperwork to [facility] and spoke with her , [place], on the phone. Notified him of discharge and estimated pickup time of 1400.
--- NOTE | 2019-04-06 15:03 | PCM.DC.SUM ---
<Jay Saenz - Last Filed: 04/06/19 15:03> Discharge Date and Diagnosis Date of Admission: 04/03/19 Date of Discharge: 04/06/19 - Primary Discharge Diagnosis Acute severe sepsis secondary to H CAP, possibly aspiration pneumonia, and urinary tract infection MARIA LUZ on CKD stage III secondary to sepsis Type 2 diabetes Hypertension hyperlipidemia Dementia Dysphagia - Secondary Discharge Diagnosis Chronic Problems Vascular dementia (Chronic) Alzheimer's dementia (Chronic) History of TIA (transient ischemic attack) (Chronic) Pure hypercholesterolemia (Chronic) Hypertension (Chronic) Diabetes mellitus (Chronic) Hospital Course and Treatment Imaging Results: RAD/Chest 1 View (Portable) IMPRESSION: Left lower lobe pneumonia suspected. Echo: Interpretation Summary Left ventricular systolic function is normal. The estimated ejection fraction is 60 %. Mild concentric left ventricular hypertrophy. Apical false tendon noted. Anterior leaflet diffuse mitral valve thickening. Moderate (2+) mitral valve insufficiency. Mild diffuse thickening of the tricuspid valve. Poor coaptation of the tricuspid valve apparatus. Moderate (2+) tricuspid valve insufficiency. Moderate focal aortic valve calcification. Right ventricular systolic pressure estimated to be 43 mmHg. No evidence for diastolic dysfunction. Consults: Bry - intensive care. 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 She was 80% on room air and unresponsive at the detention and was found to have a temperature of 103.5. She was sent to the emergency room where she was found to have evidence of severe sepsis with pneumonia on chest x-ray, positive urinalysis consistent with UTI, elevated white blood cell count, and lactic acidosis, and lactic acidosis. Troponin was also indeterminant, felt to be somewhat elevated secondary to her hypoxia at the detention. The patient was admitted to the ICU and placed on Zosyn. An echocardiogram was obtained which was unremarkable. She initially required 2 L of oxygen to maintain good saturations. The patient responded well to IV antibiotics with improvement in her mentation. Her white blood cell count results are normal. Her urine culture showed Proteus mirabilis which was susceptible to Unasyn. She was seen by PTOT and ST. She does have underlying dysphagia and is on mechanical soft diet with supervision during feeds. She was transitioned to Augmentin to cover UTI and possible aspiration pna. She will complete a total of 10 days. She was discharged back to SNF in stable condition. She should remain off of Metformin given her lactic acidosis and recent MARIA LUZ. She was placed on sliding scale insulin and will need her insulin regimen adjusted as an outpatient. This patient was seen by Jay Saenz PA-C under the supervision of Dr. Forbes [] - Physical Exam General: Alert, Oriented x3, Cooperative HEENT: Atraumatic, PERRLA, EOMI, Normocephalic Neck: Supple, No JVD, Negative Carotid Bruits Lungs: Clear to auscultation, Normal air movement Cardiovascular: Regular rate, No murmurs Abdomen: Bowel Sounds Present, Soft, Non Tender Extremities: No edema, Capillary Refill Less than 3 Seconds Skin: No rashes, No breakdown Musculoskeletal: No Tenderness to Palpation of Joints or Extremities Neurological: Cranial nerves II-XII grossly intact Psych/Mental Status: Normal Affect, Appropriate Vital Signs Temp Pulse Resp BP Pulse Ox 98.3 F 75 16 114/61 93 04/06/19 09:00 04/06/19 10:30 04/06/19 14:00 04/06/19 09:00 04/06/19 14:00 Oxygen Flow Rate (L/min) 2 Oxygen Delivery Method Room Air Weight: 188 lb 0.869 oz Body Mass Index (BMI) 31.1 Finger Stick Blood Glucose 183 Intake and Output for Last 24 Hours 04/04/19 04/05/19 04/06/19 23:59 23:59 23:59 Intake Total 3235.0 / 3235.0 1245.6 / 1245.6 407.5 / 407.5 Output Total 485 / 485 Balance 2750.0 / 2750.0 1245.6 / 1245.6 407.5 / 407.5 Microbiology Past 72 Hours 04/03/19 06:50 Urine Culture - Final Urine, Catheterized Proteus mirabilis 04/03/19 06:35 Blood Culture - Preliminary Blood Culture (Wb) - Left Wrist No growth in 48 hours. 04/03/19 06:50 Blood Culture - Preliminary Blood Culture (Wb) - Anticubital Right No growth in 48 hours. 04/03/19 10:30 Legionella Antigen - Final Urine Catheter - Hubbard Streptococcus pneumoniae Antigen (M - Final Laboratory Tests Past 24 Hrs 04/06/19 05:05 Sodium 146 H Potassium 3.8 Chloride 115 H Carbon Dioxide 24.0 Anion Gap 7 BUN 26 H Creatinine 1.19 H Estim Creat Clear Calc 30.39 Est GFR (MDRD) Af Amer 56 L Est GFR (MDRD) Non-Af 46 L BUN/Creatinine Ratio 21.8 H Glucose 108 H Calcium 9.5 POC Glucose 04/06/19 04/06/19 04/05/19 11:08 06:33 20:49 POC Glucose 184 H 123 H 161 H 04/05/19 16:09 POC Glucose 136 H Discharge Diet: 1800 Calorie Control Diet Discharge Activity: Return to Normal Activity Home Medications: Medications to take at Discharge Atorvastatin Calcium [Lipitor] 20 mg PO QHS 02/06/14 Cholecalciferol (VIT D3) [Vitamin D3] 4,000 unit PO DAILY 03/09/18 Divalproex Sodium [Depakote] 250 mg PO BIDCM 04/03/19 Donepezil HCl [Aricept] 10 mg PO QHS 04/03/19 Ferrous Sulfate 325 mg PO QHS 04/03/19 Furosemide [Lasix] 20 mg PO DAILY 04/03/19 Risperidone [Risperdal] 0.5 mg PO DAILY 04/03/19 Risperidone [Risperdal] 1 mg PO QHS 04/03/19 Acetaminophen [Tylenol Tablet] 650 mg PO Q6H PRN PRN tab 04/06/19 Albuterol Aerosols [Ventolin Aerosols] 2.5 mg INHALATION Q4H PRN PRN vial.neb. 04/06/19 Amoxicillin/Potassium Clav [Augmentin 875-125 Tablet] 1 ea PO BID #12 tab 04/06/19 Bisacodyl [Dulcolax] 10 mg RECTAL DAILY PRN PRN suppos. 04/06/19 Insulin Lispro [Humalog KwikPen] See Protocol SUBCUT ACHS insuln.pen 04/06/19 Polyethylene Glycol 3350 [Miralax] 17 gm PO DAILY packet 04/06/19 Senna/Docusate Sodium [Senokot-S] 1 tab PO DAILY PRN PRN #0 04/06/19 Following Prescrptions Were Given to Patient: Amoxicillin/Potassium Clav [Augmentin 875-125 Tablet] 1 ea PO BID #12 tab Prescription Printed Primary Care Physician: Rodney Vance MD [NON-STAFF] - Please follow up with your Primary Care Physician in: 1-2 weeks Disposition: Detention facility Minutes spent on discharge:: 35 Patient Condition:: Stable Medical Necessity - Tobacco Use Smoking Status: Never smoker Meaningful Use Info Meaningful Use Diagnoses (Choose all that apply): None applicable <Mike Forbes - Last Filed: 04/06/19 16:26> Discharge Date and Diagnosis - Secondary Discharge Diagnosis Chronic Problems Vascular dementia (Chronic) Alzheimer's dementia (Chronic) History of TIA (transient ischemic attack) (Chronic) Pure hypercholesterolemia (Chronic) Hypertension (Chronic) Diabetes mellitus (Chronic) Hospital Course and Treatment Summary of Care Provided: [] This patient was seen in conjunction with Jay JOY. I have independently interviewed and examined the patient and reviewed pertinent history, examination findings, laboratory and plan of management. I have reviewed the note and agree with the documented findings with the few additional points. In brief, The patient is a 83 year old F with multiple comorbidities as listed above, detention resident on wheelchair was brought to ER with high fever, 80% on room air and unresponsiveness. long-term heart rate was 106/min, temperature 103.5, BP 138/80 about 5 AM in SNF was admitted with hypotension and mild hypoxia. In ED, her blood pressure was 95/47, map 63, pulse ox 96% on 2 L of oxygen.Chest x-ray shows retrocardiac infiltrate. UA is positive of pyuria, LE 500, WBC more than 107 but nitrite negative patient was admitted in ICU then transferred to PCU for severe sepsis secondary to left lower lobe pneumonia probably aspiration pneumonia with UTI: Patient is on IV Zosyn. On bronchodilator, chest physiotherapy, incentive spirometry. Urine culture is positive more than 100,000 Proteus mirabilis and 1000-10,000 gram-positive organism. Urinary antigens are negative. Patient also has significant advanced Alzheimer's dementia or possible vascular dementia: Depakote 250 mg twice daily, Aricept and Risperdal resumed. Patient also has acute kidney injury showed improvement of creatinine 1.3. Baseline is 1.1-1.2. Acute kidney injury resolved. Patient blood sugars are controlled. She had a mildly elevated troponin flat intermittent 0.34, 0.4. Echo was done and reported as EF 60% with 2+ MR, TR with RVSP 43 mmHg. This is mainly due to demand ischemia. Patient is being followed by speech therapist. Currently on dysphagia diet with applesauce. They did not see any overt signs and symptoms of aspiration. Recommended mechanical soft texture with thin liquid. Overall, patient is being discharged on 6 more days of Augmentin to complete a total of 10 days of antibiotics. Discussed with the ditch tender and agree with the plan. Discharge medication reconciliation done. Discharge follow-up instructions completed. Discharge process discussed with the patient and all questions were answered to patient's satisfaction. Total time spent, exact 35 minutes on discharge meds reconciliation, examination, review of imaging and blood test and discussion with the patient on follow-up instructions. I have discussed my assessment with Jay JOY and orders have been reviewed. Code Status: DNR CC arrest Microbiology Past 72 Hours 04/03/19 06:50 Urine, Catheterized Urine Culture - Preliminary Proteus mirabilis Gram positive organism 04/03/19 06:35 Blood Culture (Wb) - Left Wrist Blood Culture - Preliminary No growth in 48 hours. 04/03/19 06:50 Blood Culture (Wb) - Anticubital Right Blood Culture - Preliminary No growth in 48 hours. 04/03/19 10:30 Urine Catheter - Hubbard Legionella Antigen - Final 04/03/19 10:30 Urine Catheter - Hubbard Streptococcus pneumoniae Antigen (M - Final Subjective: Seen and examined. Patient is more awake and alert. Patient is trying to eat her breakfast herself. Although she she cannot tell her date of , month, question because of severe advanced Alzheimer's dementia. - Physical Exam General: Alert, Oriented x3, Cooperative HEENT: Atraumatic, PERRLA, EOMI, Normocephalic Neck: Supple, No JVD, Negative Carotid Bruits Lungs: Clear to auscultation, No rhonchi, No wheeze, No rales, Diminished Cardiovascular: Regular rate, Regular Rhythm, Normal S1, Normal S2, No murmurs Abdomen: Bowel Sounds Present, Soft, Non Tender, Non-Distended Extremities: No edema, Capillary Refill Less than 3 Seconds Skin: No rashes, No breakdown Musculoskeletal: No Tenderness to Palpation of Joints or Extremities, Arthritic Changes, Muscle Wasting Neurological: Cranial nerves II-XII grossly intact Psych/Mental Status: Normal Affect, Appropriate Vital Signs Temp Pulse Resp BP Pulse Ox 98.3 F 75 16 114/61 93 04/06/19 09:00 04/06/19 10:30 04/06/19 14:00 04/06/19 09:00 04/06/19 14:00 Oxygen Flow Rate (L/min) 2 Oxygen Delivery Method Room Air Weight: 188 lb 0.869 oz Body Mass Index (BMI) 31.1 Finger Stick Blood Glucose 183 Intake and Output for Last 24 Hours 04/04/19 04/05/19 04/06/19 23:59 23:59 23:59 Intake Total 3235.0 / 3235.0 1245.6 / 1245.6 407.5 / 407.5 Output Total 485 / 485 Balance 2750.0 / 2750.0 1245.6 / 1245.6 407.5 / 407.5 Microbiology Past 72 Hours 04/03/19 06:50 Urine Culture - Final Urine, Catheterized Proteus mirabilis 04/03/19 06:35 Blood Culture - Preliminary Blood Culture (Wb) - Left Wrist No growth in 48 hours. 04/03/19 06:50 Blood Culture - Preliminary Blood Culture (Wb) - Anticubital Right No growth in 48 hours. Laboratory Tests Past 24 Hrs 04/06/19 05:05 Sodium 146 H Potassium 3.8 Chloride 115 H Carbon Dioxide 24.0 Anion Gap 7 BUN 26 H Creatinine 1.19 H Estim Creat Clear Calc 30.39 Est GFR (MDRD) Af Amer 56 L Est GFR (MDRD) Non-Af 46 L BUN/Creatinine Ratio 21.8 H Glucose 108 H Calcium 9.5 POC Glucose 04/06/19 04/06/19 04/05/19 11:08 06:33 20:49 POC Glucose 184 H 123 H 161 H Code Visit Inpatient E&M: 69515 Disch Hosp
== END 2019-04-06 14:28 | disposition skilled nursing facility (03) | DRG 871 ==
LOC: ED 08:15 → ICU 08:52 → PCU 04-04 13:55
PROVIDERS: Internal Medicine Critical Care Medicine; Physician Assistant; Admitting Provider Internal Medicine; Emergency Provider Emergency Medicine; Family Provider Family Medicine; PCP Family Medicine; Visit Provider Internal Medicine
DX: A41.9 Sepsis, unspecified organism (principal); J69.0 Pneumonitis due to inhalation of food and vomit; G93.41 Metabolic encephalopathy; N17.9 Acute kidney failure, unspecified; R65.20 Severe sepsis without septic shock; G30.9 Alzheimer's disease, unspecified; F02.80 Dementia in other diseases classified elsewhere, unspecified severity, without behavioral disturbance, psychotic disturbance, mood disturbance, and anxiety; F01.50 Vascular dementia, unspecified severity, without behavioral disturbance, psychotic disturbance, mood disturbance, and anxiety; B96.4 Proteus (mirabilis) (morganii) as the cause of diseases classified elsewhere; N30.90 Cystitis, unspecified without hematuria; R13.10 Dysphagia, unspecified; I12.9 Hypertensive chronic kidney disease with stage 1 through stage 4 chronic kidney disease, or unspecified chronic kidney disease; E78.5 Hyperlipidemia, unspecified; Z86.73 Personal history of transient ischemic attack (TIA), and cerebral infarction without residual deficits; N18.3 Chronic kidney disease, stage 3 (moderate); Z66 Do not resuscitate
CPT/HCPCS: 36415; 51702; 71045; 80048; 80053; 81001; 82962; 83605; 84443; 84484; 85025; 85610; 85730; 87040; 87077; 87086; 87088; 87186; 87449; 92526; 92610; 93005; 93306; 94640; 97110; 97140; 97163; 97166; 99251; 99285; J7030; J7040; J7120; A4216; G0463